=== PATIENT | female | born 1965 | race Caucasian/White ===

== ENCOUNTER 2020-09-21 14:36 | Inpatient (IN) | payer BC, SELFPAY ==
--- NOTE | ~2020-09-21 | XR_ITS ---
EXAMINATION: XR chest 1V portable EXAM DATE: 09/21/2020 15:14 INDICATION: Cough and shortness of breath. TECHNIQUE: Portable AP frontal chest x-ray was obtained. There is no prior study for comparison. FINDINGS: The lungs are clear. There are no pleural effusions. Cardiac silhouette is prominent but magnified on this AP technique. There is no pneumothorax suspected. The bones and soft tissues are unremarkable. IMPRESSION: No acute cardiopulmonary findings. Reviewed, dictated and finalized at location A. IN[facility] CUTTER
[2020-09-21 14:40] VITALS: BP 134/71; PULSE 90; RESP 20; TEMP 36.7; O2SAT 94
--- NOTE | 2020-09-21 15:00 | ECG_ITS ---
Measurements Intervals [place] Rate: 107 P: 52 IN: 129 QRS: 19 QRSD: 85 T: 42 QT: 354 QTc: 474 Interpretive Statements SINUS TACHYCARDIA POSSIBLE LEFT ATRIAL ENLARGEMENT LOW QRS VOLTAGE IN PRECORDIAL LEADS NONSPECIFIC ST & T-WAVE ABNORMALITY- DIFFUSE LEADS BASELINE ARTIFACT- I, III, AVL, V1 ABNORMAL ECG Electronically Signed On 09-21-2020 16:31:42 CUSTOMER ACCOUNT TECHNICIAN by Robert Alejo D.O.
--- NOTE | 2020-09-21 15:01 | ED.GENADULT ---
HPI - General Adult General Chief complaint: Shortness of Breath/Dyspnea Stated complaint: SOB Time Seen by Provider: 09/21/20 14:47 Source: patient History of Present Illness HPI narrative: Patient is a 55 y/o female complaining of severe SOB for 1 week. She states that she used her Neb without much relief. She has some cough. She denies. She states that she went to [facility] and her doctor wanted her admitted. However, there was no available bed at [facility]. She states that she has history of COPD and she still smokes. Related Data Home Medications Medication Instructions Recorded Confirmed albuterol sulfate 4 puff INHALATION Q4H 09/21/20 09/21/20 atorvastatin 80 mg PO DAILY 09/21/20 09/21/20 azithromycin 500 mg PO DAILY 09/21/20 09/21/20 clonazepam 0.5 mg PO HS 09/21/20 09/21/20 dapagliflozin [Farxiga] 5 mg PO DAILY 09/21/20 09/21/20 gabapentin 300 mg PO HS 09/21/20 09/21/20 insulin aspart U-100 [Novolog 10 unit SUBCUT TIDWM 09/21/20 09/21/20 U-100 Insulin aspart] irbesartan 150 mg PO DAILY 09/21/20 09/21/20 metoprolol tartrate 100 mg PO BID 09/21/20 09/21/20 trazodone 100 mg PO HS 09/21/20 09/21/20 Allergies Allergy/AdvReac Type Severity Reaction Status Date / Time Penicillins Allergy Severe Difficulty Verified 09/21/20 19:49 Breathing Review of Systems Constitutional: Constitutional: Denies chills, Denies fever(s), Denies headache(s) and Denies weakness Eyes: Eyes: Denies blurry vision ENT: Denies headache(s) and Denies neck pain Cardiovascular: Cardiovascular: Denies chest pain and Reports dyspnea Respiratory: Respiratory: Reports cough and Reports dyspnea Gastrointestinal: Gastrointestinal: Denies abdominal pain, Denies diarrhea, Denies nausea and Denies vomiting Genitourinary: Genitourinary: Denies hematuria and Denies dysuria Musculoskeletal: Musculoskeletal: Denies back pain and Denies neck pain Neurologic: Denies headache(s) and Denies weakness [facility] Past Medical History Medical History (Updated 09/22/20 @ 07:23 by Ilene Goff MD) Cerebrovascular accident Documented in her EMR however the patient denies history of such to this examiner. Chronic obstructive pulmonary disease Coronary artery disease Patient reports a history of MT and had a cardiac catheterization, without intervention. Gastroesophageal reflux disease Hypertension Tobacco abuse Type 2 diabetes mellitus Surgical History Surgical History (Updated 09/21/20 @ 23:20 by Sarah Hood PA-C) History of cardiac catheterization History of hysterectomy (~1996) Performed for reported pre cancerous changes. Family History Family History (Updated 09/21/20 @ 23:20 by Sarah Hood PA-C) Other Diabetes mellitus Hypertension Social History Social History (Updated 09/21/20 @ 23:21 by Sarah Hood PA-C) Social History: Surrogate decision maker: Ayesha Ramsey, daughter. Code status: Full code. Smoking packs per day: 1.5 Smoking cigarettes per day: 30.0 Years smoked: 15 Smoking pack-years: 22.50 Smoking status: Current every day smoker Tobacco type: cigarettes Alcohol intake: never Substance use: never Additional living arrangements comments: Lives in [place] with her family. 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 Gender identity (if verbalized by the patient): Female Spiritual care concerns: No Exam Const: General: no acute distress and well developed Orientation/consciousness: oriented to person, oriented to place, oriented to time and patient oriented x3 HENMT: Head: normocephalic Ears: external ears normal General nose exam: Normal external nose present Eyes: General: appearance normal, both eyes and all related structures Conjunctivae: conjunctivae normal Neck: Neck: normal visual inspection and full ROM Chest: Chest palpation & inspection: normal inspection of the chest and no tenderness Resp:
[2020-09-21 15:37] LABS: Basophils Percent Auto 0.2 % (0.2-1.2); Eosinophils Percent Auto 0.1 % (0-4.4); Hematocrit 49.2 % (37.0-47.0); Hemoglobin 16.4 g/dL (12.0-15.0); Immature Granulocyte Absolute 0.12 K/mm3 (0.00-0.031); Immature Granulocyte Percent A 0.7 % (0-0.5); Lymphocytes Absolute Auto 2.06 K/mm3 (0.9-3.2); Lymphocytes Percent Auto 11.9 % (18.3-44.2); Mean Corpuscular HGB Conc 33.3 g/dl (32-36); Mean Corpuscular Hemoglobin 27.3 pg (26-34); Mean Corpuscular Volume 81.9 fl (80-100); Mean Platelet Volume 10.4 fl (7.4-10.4); Monocytes Absolute Auto 0.3 K/mm3 (0.1-0.6); Monocytes Percent Auto 1.9 % (2.6-8.5); Neutrophils Absolute Auto 14.7 K/mm3 (1.3-6.7); Neutrophils Percent Auto 85.2 % (45.5-73.1); Platelet Count Result 280 k/mm3 (150-375); Red Blood Count 6.01 M/mm3 (4.2-5.4); Red Cell Distribution Width 12.8 % (11.5-14.5); White Blood Count 17.3 K/mm3 (4.5-10.0)
[2020-09-21 15:53] LABS: Alanine Aminotransferase 15 U/L (4-35); Albumin Level 3.8 g/dL (3.5-5.1); Alkaline Phosphatase 107 U/L (38-126); Anion Gap 7 mmol/L (8-16); Aspartate Amino Transferase 18 U/L (14-36); Bilirubin,Total 0.6 mg/dL (0.2-1.3); Blood Urea Nitrogen 18 mg/dL (7-17); Carbon Dioxide 28 mmol/L (22-30); Chloride 99 mmol/L (98-107); Estimated CRCL calculation 118 ml/min; Estimated Glomerular Filt Rate > 60; Glucose 404 mg/dL (65-105); Sodium 134 mmol/L (137-145)
[2020-09-21 16:04] LABS: NT Pro B Type Natriuretic Pept 191 PG/ML (5-100); Troponin I < 0.012 ng/mL (0.000-0.034)
[2020-09-21 16:42] VITALS: BP 138/92; PULSE 103; RESP 20; O2SAT 93
[2020-09-21] MEDS: INSULIN HUMAN REGULAR (*BKC) 100 UNITS/ML 10 UNITS SUB-Q (16:44)
[2020-09-21 17:31] VITALS: BP 167/101; PULSE 78; RESP 18; O2SAT 93
[2020-09-21 17:34] LABS: Alveolar/Arterial O2 Gradient 32.8 mmHg; Base Excess ABG 1.1 mEq/l (+/-2.0); Fractional Inspired Oxygen 21 %; HCO3 ABG 25.3 mEq/l (22.0-26.0); Oxygen Content ABG 21.7 %vol (16.0-22.0); Oxygen Saturation ABG 92.8 % (95.0-100.0); Oxyhemoglobin 90.8 % THb (90.0-100.0); PO2 ABG 63.1 mmHg (80.0-100.0); Site Drawn RIGHT BRACHIAL
[2020-09-21 17:35] LABS: Device ROOM AIR
[2020-09-21 17:59] LABS: Glucose Point of Care 486 (65-105)
[2020-09-21 19:36] VITALS: BP 159/95; PULSE 98; RESP 22; TEMP 36.5; O2SAT 96; BMI 32.6
[2020-09-21 19:37] VITALS: BMI 32.2
--- NOTE | 2020-09-21 19:40 | ADMGEN ---
This patient, Kimber Sauceda, was admitted to [facility] Surg Room 319-01. Patient/family oriented to hospital policies and general routines including ID bracelet, bed and alarms, visiting hours, pain management, procedures, bathroom and other care routines, personal items, smoking policy, room service/diet, and visiting hours. Information on how to activate the Rapid Response Team has been discussed. Patient/Family are encouraged to report perceived risks to care and to ask questions if they do not understand what they are told or what they should do.
[2020-09-21 20:46] LABS: Troponin I < 0.012 ng/mL (0.000-0.034)
--- NOTE | 2020-09-21 21:30 | PM.IMHP ---
H&P: HPI History of Present Illness Date/Time: 09/21/20 21:30 Chief complaint: Shortness of breath. Narrative: Kimber Sauceda is a 55-year-old female smoker with COPD, type 2 diabetes mellitus, and hypertension who presented to the emergency department earlier this afternoon via EMS from home with complaints of shortness of breath. She has not been feeling well for over a week's time with cough and shortness of breath and in fact was seen in the emergency department at [facility] last Monday where she was diagnosed with pneumonia. She was given prescriptions for a Z-Jacoby, prednisone taper, and a rescue inhaler and it sounds as though she was seen again on without improvement. At that time she was prescribed a nebulizer which she has been using q.4 hours with lesser and lesser benefit. She has completed the Z-Jacoby and remains on the prednisone taper but is not feeling much better and in fact she has not smoked in several days. Continued symptoms include a subjective fever, cough which is loose but nonproductive, wheezing, thoracic pain which she attributes to coughing fits, and decreased appetite and oral intake. It sounds as though she has had a couple of episodes of post-tussive emesis as well. She has not had a documented fever, denies recent travel, and reportedly tested negative last week for COVID-19 at an outside facility. No anosmia or dysgeusia. She has not had pleuritic pain, palpitations, orthopnea, PND, or lower extremity edema. Of note the patient's nurse was told by the patient's daughter that she had been having periods of confusion over the weekend, for instance speaking or seeing her parents. Apparently she has been having instances of incontinence while in bed as well. I did bring these concerns up with the patient, however she denies these allegations. Review of Systems Review of Systems: Narrative: Twelve systems were reviewed with pertinent positives and negatives as per HPI. she denies recent travel. No diarrhea. No dysuria. She has perhaps mild headache at times but nothing significant. No dizziness, vertigo, auditory visual changes, focal weakness, or paresthesias. She denies confusion to me. Except as documented, all other systems were reviewed and are negative. [facility] Past Medical History Medical History (Updated 09/21/20 @ 23:20 by Sarah Hood PA-C) Cerebrovascular accident Documented in her EMR however the patient denies history of such to this examiner. Chronic obstructive pulmonary disease Coronary artery disease Patient reports a history of IN and had a cardiac catheterization, without intervention. Gastroesophageal reflux disease Hypertension Tobacco abuse Type 2 diabetes mellitus Surgical History Surgical History (Updated 09/21/20 @ 23:20 by Sarah Hood PA-C) History of cardiac catheterization History of hysterectomy (~1996) Performed for reported pre cancerous changes. Family History Family History (Updated 09/21/20 @ 23:20 by Sarah Hood PA-C) Other Diabetes mellitus Hypertension Social History Social History (Updated 09/21/20 @ 23:21 by Sarah Hood PA-C) Social History: Surrogate decision maker: Ayesha Ramsey, daughter. Code status: Full code. Smoking packs per day: 1.5 Smoking cigarettes per day: 30.0 Years smoked: 15 Smoking pack-years: 22.50 Smoking status: Current every day smoker Tobacco type: cigarettes Alcohol intake: never Substance use: never Additional living arrangements comments: Lives in [place] with her family. 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 Gender identity (if verbalized by the patient): Female Spiritual care concerns: No Meds Home Medications and Allergies Home Medications Medication Instructions Recorded Confirmed Type albuterol sulfate 4 puff INHALATION Q4H 09/21/20 09/21/20 History atorvastatin 80 mg
[2020-09-21 23:00] VITALS: PULSE 75; RESP 16; O2SAT 92
[2020-09-21] MEDS: SODIUM CHLORIDE 0.9% IV 1,000 ML 100 ML IV CONT (23:52)
[2020-09-21 23:53] LABS: Troponin I < 0.012 ng/mL (0.000-0.034)
[2020-09-21] MEDS: clonazePAM (*CRX) 0.5 MG TABLET PO (23:53)
[2020-09-21] MEDS: guaiFENesin 12 HR 600 MG TABCR 1200 MG PO (23:53)
[2020-09-21 23:54] VITALS: PULSE 76
[2020-09-21] MEDS: METOPROLOL TARTRATE 50 MG TAB 100 MG PO (23:54)
[2020-09-21] MEDS: traZODone HCL 50 MG TABLET 100 MG PO (23:54)
[2020-09-21] MEDS: GABAPENTIN 300 MG CAPSULE PO (23:55)
[2020-09-22] VITALS (10 sets, daily range): BP systolic 130–165; BP diastolic 61–91; PULSE 66–86; RESP 16–20; TEMP 36.3–36.8; O2SAT 92–96; BMI 32.2
[2020-09-22] MEDS: INSULIN ASPART (*BKC) 100 UNITS/ML 11 UNITS SUB-Q (01:40)
[2020-09-22] MEDS: ALBUTEROL SULFATE (*SP) AEROSOL 1 PUFF 2 PUFF INHALATION ×3 (02:43→21:09)
[2020-09-22 05:24] LABS: Glucose Point of Care 351 (65-105)
[2020-09-22 05:24] LABS: Glucose Point of Care 403 (65-105)
[2020-09-22 06:21] LABS: Basophils Percent Auto 0.2 % (0.2-1.2); Hematocrit 46.1 % (37.0-47.0); Hemoglobin 15.4 g/dL (12.0-15.0); Immature Granulocyte Absolute 0.21 K/mm3 (0.00-0.031); Immature Granulocyte Percent A 1.2 % (0-0.5); Lymphocytes Absolute Auto 2.81 K/mm3 (0.9-3.2); Lymphocytes Percent Auto 15.6 % (18.3-44.2); Mean Corpuscular HGB Conc 33.4 g/dl (32-36); Mean Corpuscular Hemoglobin 26.6 pg (26-34); Mean Corpuscular Volume 79.5 fl (80-100); Mean Platelet Volume 10.6 fl (7.4-10.4); Monocytes Absolute Auto 0.8 K/mm3 (0.1-0.6); Monocytes Percent Auto 4.3 % (2.6-8.5); Neutrophils Absolute Auto 14.2 K/mm3 (1.3-6.7); Neutrophils Percent Auto 78.7 % (45.5-73.1); Platelet Count Result 300 k/mm3 (150-375); Red Cell Distribution Width 12.5 % (11.5-14.5)
[2020-09-22 06:30] LABS: Anion Gap 6 mmol/L (8-16); Blood Urea Nitrogen 20 mg/dL (7-17); Calcium 8.7 mg/dL (8.4-10.2); Carbon Dioxide 29 mmol/L (22-30); Chloride 101 mmol/L (98-107); Estimated CRCL calculation 141 ml/min; Estimated Glomerular Filt Rate > 60; Glucose 251 mg/dL (65-105); Potassium 3.9 mmol/L (3.4-5.0); Sodium 136 mmol/L (137-145)
[2020-09-22 07:24] LABS: Hemoglobin A1C 10.8 % (<5.7)
[2020-09-22] MEDS: predniSONE 20 MG TABLET 40 MG PO (08:19)
[2020-09-22] MEDS: guaiFENesin 12 HR 600 MG TABCR 1200 MG PO ×2 (08:19→21:28)
[2020-09-22] MEDS: ATORVASTATIN 40 MG TABLET 80 MG PO (08:20)
[2020-09-22] MEDS: METOPROLOL TARTRATE 50 MG TAB 100 MG PO ×2 (08:20→21:28)
[2020-09-22] MEDS: ENOXAPARIN 40 MG/0.4 ML SYRINGE SUB-Q (08:20)
[2020-09-22] MEDS: IRBESARTAN 150 MG TABLET PO (08:20)
[2020-09-22] MEDS: INSULIN ASPART (*BKC) 100 UNITS/ML SUB-Q ×3 (08:25→17:11)
[2020-09-22] MEDS: INSULIN ASPART (*BKC) 100 UNITS/ML 10 UNITS SUB-Q ×3 (08:25→17:10)
[2020-09-22 13:20] LABS: Glucose Point of Care 226 (65-105)
[2020-09-22 13:20] LABS: Glucose Point of Care 234 (65-105)
--- NOTE | 2020-09-22 13:47 | PM.IMPN ---
Progress Note: A&P Assessment and Plan (1) COPD exacerbation: Code(s): J44.1 - Chronic obstructive pulmonary disease with (acute) exacerbation Status: Acute Assessment and Plan: COPD exacerbation inhaled steroid and schedule albuterol MDI as q.4 hours. Start IV levaquin. Pt has PCN allergy. Pt has been swabbed for COVID awaiting results (2) Tobacco abuse: Code(s): Z72.0 - Tobacco use Status: Acute Assessment and Plan: Pt smokes 1 pack a day , last cigarette one week. Pt will need Nicotine patch (3) Type 2 diabetes mellitus: Code(s): E11.9 - Type 2 diabetes mellitus without complications Status: Inactive Assessment and Plan: Watch sugars, running slightly high, pt is started on steroids, HBaic is 10 (4) Hypertension: Code(s): I10 - Essential (primary) hypertension Status: Chronic Assessment and Plan: On medicatiion, watch BPs (5) Leukocytosis: Code(s): D72.829 - Elevated white blood cell count, unspecified Status: Acute Assessment [place]: [place] [id number] Subjective Date/time seen: 09/22/20 13:47 Interval history: Kimber Sauceda is a 55-year-old female smoker with COPD, type 2 diabetes mellitus, and hypertension who presented to the emergency department earlier this afternoon via EMS from home with complaints of shortness of breath. She has not been feeling well for over a week's time with cough and shortness of breath and in fact was seen in the emergency department at [facility] last Monday where she was diagnosed with pneumonia. Pt got worse, more coughing, low grade fevers. Pts pcp told her to go to [place] ER. Pt feels unwell with cough and SOB. [place] [id number]. Review of Systems Review of Systems: All systems reviewed & are unremarkable except as noted in HPI and below Exam Narrative: Exam Narrative: General: Pt looks ill, wet cough Cardiovascular: Regular rate and rhythm with S1-S2. Gastrointestinal: Abdomen is soft, nontender, and nondistended with positive bowel sounds. Skin: Warm and dry. No rash or lesions on limited exam. Extremities: No cyanosis, clubbing, or edema. Neurological: No gross focal deficits to casual conversation. Psychiatric: Appropriate mood. Objective Data Vital Signs Vital Signs: Vital Signs - 24 hr 11/16/20 14:40 09/21/20 16:42 09/21/20 17:31 Temperature 36.7 C Pulse Rate 90 103 H 78 Respiratory Rate 20 20 18 Blood Pressure 134/71 138/92 H 167/101 H Pulse Oximetry 94 93 93 09/21/20 19:36 09/21/20 23:54 09/22/20 02:48 Temperature 36.5 C Pulse Rate 98 76 73 Respiratory Rate 22 H Blood Pressure 159/95 H Pulse Oximetry 96 93 09/22/20 04:00 09/22/20 08:00 09/22/20 08:20 Temperature 36.4 C L 36.7 C Pulse Rate 66 70 68 Respiratory Rate 20 16 Blood Pressure 151/79 H 151/78 H Pulse Oximetry 93 96 09/22/20 10:15 09/22/20 12:00 Temperature 36.8 C Pulse Rate 81 Respiratory Rate 20 Blood Pressure 146/81 H Pulse Oximetry 92 94 Intake/Output Intake/Output: Intake & Output 09/19/20 09/20/20 09/21/20 09/22/20 23:59 23:59 23:59 23:59 Intake Total 1939 Balance 1939 Meds/Results Medications: Active Medications Generic Name Dose Route Start Last Admin Trade Name Freq PRN Reason Stop Dose Admin Albuterol 2 puff 09/22/20 02:00 09/22/20 10:15 Albuterol Sulfate (*Sp) Aerosol 1 Puff INHALATION 2 puff Q6HRT ISH Administration Atorvastatin Calcium 80 mg 09/22/20 09:00 09/22/20 08:20 Atorvastatin 40 Mg Tablet PO 80 mg DAILY ISH Administration Budesonide/Formoterol Fumarate 2 puff 09/22/20 08:00 09/22/20 10:15 Budesonide/Form 160-4.5 Mcg (*Sp) INHALATION 2 puff Q12HRT ISH Administration Clonazepam 0.5 mg 09/21/20 23:35 09/21/20 23:53 Clonazepam (*Crx) 0.5 Mg Tablet PO 0.5 mg HS ISH Administration Dextrose 12.5 gm 09/22/20 00:51 Dextros
[2020-09-22] MEDS: BENZONATATE 100 MG CAPSULE PO (15:01)
[2020-09-22] MEDS: levoFLOXacin 500 MG/D5W 100 ML 500 MG/100 ML BAG 100 MG IVPB (17:56)
[2020-09-22 18:30] LABS: Glucose Point of Care 243 (65-105)
[2020-09-22] MEDS: ACETAMINOPHEN 325 MG TABLET 650 MG PO (18:45)
[2020-09-22 19:47] LABS: SARS-CoV-2 RNA PCR Negative
[2020-09-22] MEDS: GABAPENTIN 300 MG CAPSULE PO (21:28)
[2020-09-22] MEDS: traZODone HCL 50 MG TABLET 100 MG PO (21:41)
[2020-09-22] MEDS: clonazePAM (*CRX) 0.5 MG TABLET PO (21:41)
[2020-09-22 22:44] LABS: Glucose Point of Care 300 (65-105)
--- NOTE | 2020-09-22 23:23 | PC.NURSE ---
09/22/20 at 2235-- patient moved to room 301 from room 319, covid results negative. TDialRN
[2020-09-23] VITALS (9 sets, daily range): BP systolic 149–156; BP diastolic 73–95; PULSE 68–88; RESP 16–20; TEMP 36.1–36.7; O2SAT 94–98
[2020-09-23 08:38] LABS: Glucose Point of Care 268 (65-105)
[2020-09-23] MEDS: INSULIN ASPART (*BKC) 100 UNITS/ML 10 UNITS SUB-Q ×3 (08:50→17:10)
[2020-09-23] MEDS: INSULIN ASPART (*BKC) 100 UNITS/ML SUB-Q ×3 (08:51→17:10)
[2020-09-23] MEDS: ATORVASTATIN 40 MG TABLET 80 MG PO (08:53)
[2020-09-23] MEDS: predniSONE 20 MG TABLET 40 MG PO (08:53)
[2020-09-23] MEDS: IRBESARTAN 150 MG TABLET PO (08:54)
[2020-09-23] MEDS: ENOXAPARIN 40 MG/0.4 ML SYRINGE SUB-Q (08:54)
[2020-09-23] MEDS: METOPROLOL TARTRATE 50 MG TAB 100 MG PO ×2 (08:54→20:39)
[2020-09-23] MEDS: guaiFENesin 12 HR 600 MG TABCR 1200 MG PO ×2 (08:54→20:40)
[2020-09-23] MEDS: ALBUTEROL SULFATE (*SP) AEROSOL 1 PUFF 2 PUFF INHALATION (09:21)
[2020-09-23 12:17] LABS: Glucose Point of Care 220 (65-105)
--- NOTE | 2020-09-23 12:47 | PM.IMPN ---
Progress Note: A&P Assessment and Plan (1) COPD exacerbation: Code(s): J44.1 - Chronic obstructive pulmonary disease with (acute) exacerbation Status: Acute Assessment and Plan: COPD exacerbation, oral steroids i will change to iv, Breathing treatments. Start IV levaquin. Pt has PCN allergy. COVID IS negative (2) Tobacco abuse: Code(s): Z72.0 - Tobacco use Status: Acute Assessment and Plan: Pt smokes 1 pack a day , last cigarette one week. Pt will need Nicotine patch (3) Type 2 diabetes mellitus: Code(s): E11.9 - Type 2 diabetes mellitus without complications Status: Inactive Assessment and Plan: Sugars still, running slightly high, pt is started on steroids, HBaic is 10 (4) Hypertension: Code(s): I10 - Essential (primary) hypertension Status: Chronic Assessment and Plan: On medication, watch BPs (5) Leukocytosis: Code(s): D72.829 - Elevated white blood cell count, unspecified Status: Acute Assessment [place]: [place] [id number] Subjective Date/time seen: 09/23/20 12:47 Interval history: Kimber Sauceda is a 55-year-old female smoker with COPD, type 2 diabetes mellitus, and hypertension who presented to the emergency department earlier this afternoon via EMS from home with complaints of shortness of breath. She has not been feeling well for over a week's time with cough and shortness of breath and in fact was seen in the emergency department at [facility] last Monday where she was diagnosed with pneumonia. Pt got worse, more coughing, low grade fevers. Pts pcp told her to go to [place] ER. Pt feels unwell with cough and SOB. [place] [id number]. Pt still has wet cough. Pt is a smoker one pack a day, Daughter wants her to see Pulmology. Review of Systems Review of Systems: All systems reviewed & are unremarkable except as noted in HPI and below Exam Narrative: Exam Narrative: General: Pt looks ill, wet cough Cardiovascular: Regular rate and rhythm with S1-S2. Lungs: BL wheezes expiratory wheezes diffuse Gastrointestinal: Abdomen is soft, nontender, and nondistended with positive bowel sounds. Skin: Warm and dry. No rash or lesions on limited exam. Extremities: No cyanosis, clubbing, or edema. Neurological: No gross focal deficits to casual conversation. Psychiatric: Appropriate mood. Objective Data Vital Signs Vital Signs: Vital Signs - 24 hr 09/22/20 16:00 09/22/20 20:00 09/22/20 21:09 Temperature 36.8 C 36.3 C L Pulse Rate 86 75 Respiratory Rate 20 16 Blood Pressure 165/91 H 130/61 Pulse Oximetry 96 94 92 09/22/20 21:28 09/23/20 07:48 09/23/20 08:54 Temperature 36.7 C Pulse Rate 75 73 68 Respiratory Rate 16 Blood Pressure 156/95 H Pulse Oximetry 92 97 09/23/20 09:21 Temperature Pulse Rate 77 Respiratory Rate 16 Blood Pressure Pulse Oximetry 94 Intake/Output Intake/Output: Intake & Output 09/20/20 09/21/20 09/22/20 09/23/20 23:59 23:59 23:59 23:59 Intake Total 3180 560 Output Total 250 Balance 2930 560 Meds/Results Medications: Active Medications Generic Name Dose Route Start Last Admin Trade Name Freq PRN Reason Stop Dose Admin Acetaminophen 650 mg 09/22/20 18:21 09/22/20 18:45 Acetaminophen 325 Mg Tablet PO 650 mg Q6H PRN Administration Mild Pain (1-3) or Fever Albuterol 2.5 mg 09/23/20 14:00 Albuterol Sulfate Neb 2.5 Mg/0.5 Ml Inh INHALATION Q6HRT ISH Atorvastatin Calcium 80 mg 09/22/20 09:00 09/23/20 08:53 Atorvastatin 40 Mg Tablet PO 80 mg DAILY ISH Administration Benzonatate 100 mg 09/22/20 14:05 09/22/20 15:01 Benzonatate 100 Mg Capsule PO 100 mg TID PRN Administration Cough Budesonide/Formoterol Fumarate 2 puff 09/22/20 08:00 09/23/20 09:21 Budesonide/Form 160-4.5 Mcg (*Sp) INHALATION 2 puff Q12HRT ISH Administration Clonazepam
[2020-09-23] MEDS: ALBUTEROL SULFATE NEB 2.5 MG/0.5 ML INH INHALATION ×2 (15:13→20:29)
[2020-09-23] MEDS: IPRATROPIUM BR 0.02% INH SOLN 0.5 MG/2.5 ML VIAL INHALATION ×2 (15:13→20:29)
[2020-09-23] MEDS: methylPREDNISolone SOD SUCC 40 MG VIAL IV PUSH (17:13)
[2020-09-23 17:22] LABS: Glucose Point of Care 297 (65-105)
[2020-09-23] MEDS: FAMOTIDINE 20 MG TABLET PO (17:32)
[2020-09-23] MEDS: GABAPENTIN 300 MG CAPSULE PO (20:39)
[2020-09-23] MEDS: traZODone HCL 50 MG TABLET 100 MG PO (20:40)
[2020-09-23] MEDS: clonazePAM (*CRX) 0.5 MG TABLET PO (20:47)
[2020-09-24] VITALS (15 sets, daily range): BP systolic 151–173; BP diastolic 81–90; PULSE 73–92; RESP 16–20; TEMP 35.9–36.7; O2SAT 94–98
[2020-09-24] MEDS: methylPREDNISolone SOD SUCC 40 MG VIAL IV PUSH ×2 (00:13→06:34)
[2020-09-24] MEDS: IPRATROPIUM BR 0.02% INH SOLN 0.5 MG/2.5 ML VIAL INHALATION ×4 (02:49→19:45)
[2020-09-24] MEDS: ALBUTEROL SULFATE NEB 2.5 MG/0.5 ML INH INHALATION ×4 (02:49→19:45)
[2020-09-24 08:07] LABS: Glucose Point of Care 394 (65-105)
[2020-09-24 08:31] LABS: Glucose Point of Care 429 (65-105)
[2020-09-24] MEDS: INSULIN ASPART (*BKC) 100 UNITS/ML 10 UNITS SUB-Q ×3 (08:49→17:26)
[2020-09-24] MEDS: INSULIN ASPART (*BKC) 100 UNITS/ML SUB-Q ×3 (08:50→17:27)
[2020-09-24] MEDS: ENOXAPARIN 40 MG/0.4 ML SYRINGE SUB-Q (08:56)
[2020-09-24] MEDS: ATORVASTATIN 40 MG TABLET 80 MG PO (08:56)
[2020-09-24] MEDS: guaiFENesin 12 HR 600 MG TABCR 1200 MG PO ×2 (08:57→21:21)
[2020-09-24] MEDS: METOPROLOL TARTRATE 50 MG TAB 100 MG PO ×2 (08:57→21:22)
[2020-09-24] MEDS: FAMOTIDINE 20 MG TABLET PO ×2 (08:57→17:29)
[2020-09-24] MEDS: IRBESARTAN 150 MG TABLET PO (08:57)
[2020-09-24 11:55] LABS: Hematocrit 47.3 % (37.0-47.0); Hemoglobin 15.9 g/dL (12.0-15.0); Mean Corpuscular HGB Conc 33.6 g/dl (32-36); Mean Corpuscular Hemoglobin 26.9 pg (26-34); Mean Corpuscular Volume 79.9 fl (80-100); Mean Platelet Volume 10.6 fl (7.4-10.4); Platelet Count Result 298 k/mm3 (150-375); Red Blood Count 5.92 M/mm3 (4.2-5.4); Red Cell Distribution Width 12.6 % (11.5-14.5); White Blood Count 19.7 K/mm3 (4.5-10.0)
[2020-09-24 12:08] LABS: Glucose Point of Care 363 (65-105)
[2020-09-24] MEDS: methylPREDNISolone SOD SUCC 40 MG VIAL 20 MG IV PUSH ×2 (12:13→17:29)
--- NOTE | 2020-09-24 14:22 | PM.IMPN ---
Progress Note: A&P Assessment and Plan (1) COPD exacerbation: Code(s): J44.1 - Chronic obstructive pulmonary disease with (acute) exacerbation Status: Acute Assessment and Plan: COPD exacerbation, oral steroids i will change to iv, Breathing treatments. Start IV levaquin. Pt has PCN allergy. COVID IS negative (2) Tobacco abuse: Code(s): Z72.0 - Tobacco use Status: Acute Assessment and Plan: Pt smokes 1 pack a day , last cigarette one week. Pt will need Nicotine patch (3) Type 2 diabetes mellitus: Code(s): E11.9 - Type 2 diabetes mellitus without complications Status: Inactive Assessment and Plan: Dm type 2 uncontrolled, sugars running slightly high, pt is started on steroids, HBaic is 10 (4) Hypertension: Code(s): I10 - Essential (primary) hypertension Status: Chronic Assessment and Plan: On medication, watch BPs (5) Leukocytosis: Code(s): D72.829 - Elevated white blood cell count, unspecified Status: Acute Assessment [place]: [place] [id number] Subjective Date/time seen: 09/24/20 14:22 Interval history: Kimber Sauceda is a 55-year-old female smoker with COPD, type 2 diabetes mellitus, and hypertension who presented to the emergency department earlier this afternoon via EMS from home with complaints of shortness of breath. She has not been feeling well for over a week's time with cough and shortness of breath and in fact was seen in the emergency department at [facility] last Monday where she was diagnosed with pneumonia. Pt got worse, more coughing, low grade fevers. Pts pcp told her to go to [place] ER. Pt feels unwell with cough and SOB. [place] [id number] Pt cough is better. Pt is a smoker one pack a day, Daughter wants her to see Pulmonology. Pt is being treated for COPD exacerbation. Review of Systems Review of Systems: All systems reviewed & are unremarkable except as noted in HPI and below Exam Narrative: Exam Narrative: General: Pt mild cough Cardiovascular: Regular rate and rhythm with S1-S2. Lungs: Few scattered wheezes Gastrointestinal: Abdomen is soft, nontender, and nondistended with positive bowel sounds. Skin: Warm and dry. No rash or lesions on limited exam. Extremities: No cyanosis, clubbing, or edema. Neurological: No gross focal deficits to casual conversation. Psychiatric: Appropriate mood. Objective Data Vital Signs Vital Signs: Vital Signs - 24 hr 09/23/20 15:13 09/23/20 15:23 09/23/20 20:30 Temperature Pulse Rate 78 80 83 Respiratory Rate 16 16 18 Blood Pressure Pulse Oximetry 98 09/23/20 20:39 09/23/20 22:42 09/24/20 02:54 Temperature 36.6 C Pulse Rate 88 87 82 Respiratory Rate 16 18 Blood Pressure 154/92 H Pulse Oximetry 95 09/24/20 06:45 09/24/20 08:57 09/24/20 09:45 Temperature 36.7 C Pulse Rate 73 88 82 Respiratory Rate 16 18 Blood Pressure 162/90 H Pulse Oximetry 94 09/24/20 09:55 09/24/20 10:31 09/24/20 13:30 Temperature Pulse Rate 85 84 Respiratory Rate 18 18 Blood Pressure Pulse Oximetry 98 09/24/20 13:38 Temperature Pulse Rate 82 Respiratory Rate 18 Blood Pressure Pulse Oximetry Intake/Output Intake/Output: Intake & Output 09/21/20 09/22/20 09/23/20 09/24/20 23:59 23:59 23:59 23:59 Intake Total 3180 920 840 Output Total 250 500 Balance 2930 920 340 Meds/Results Medications: Active Medications Generic Name Dose Route Start Last Admin Trade Name Freq PRN Reason Stop Dose Admin Acetaminophen 650 mg 09/22/20 18:21 09/22/20 18:45 Acetaminophen 325 Mg Tablet PO 650 mg Q6H PRN Administration Mild Pain (1-3) or Fever Albuterol 2.5 mg 09/23/20 14:00 09/24/20 13:25 Albuterol Sulfate Neb 2.5 Mg/0.5 Ml Inh INHALATION 2.5 mg Q6HRT ISH Administration Atorvastatin Calcium 80 mg 09/22/20 09:00 09/24/20 08:56 Atorvast
[2020-09-24 18:09] LABS: Glucose Point of Care 396 (65-105)
--- NOTE | 2020-09-24 20:04 | PM.CNPUL ---
Assessment and Plan Assessment and plan (1) COPD exacerbation: Code(s): J44.1 - Chronic obstructive pulmonary disease with (acute) exacerbation Status: Acute Assessment and Plan: She has been smoking x 22+ years, slowed before coming in, none for the last 3 days.She is not committed to quitting, not convinced this is necessary. She has COPd symptoms at baseline, smoker's cough, shortness of breath with daily activities, no regular sputum production and wheezes only when sick. Mei now has erythrocytosis, and this may reflect low O2 levels at night. She will need more follow up for possible sleep disordered breathing. PLAN: COPD controller therapy ; now on Symbicort which should be used with a spacer. Continue albuterol p.r.n. She can take the [place]et valve home nad use t oassist wit hsecretions clearance. She says that it helps to loosen secretions. PFTs in 6 - 8 weeks; may be candidate for cardiopulmonary rehab Follow up in the office in 1-2 months Tobacco cessation; personal cessation and avoiding second hand smoke from Alpha-1 antitrypsin level in am with COPD. She is on room air and should be stable for d/c tomorrow. Sleep follow up out-patient; at minimum HST. home sleep test. (2) Tobacco abuse: Code(s): Z72.0 - Tobacco use Status: Acute Assessment and Plan: Smoked up until a few days before admission. She is not totally committed to smoking cessation. She really needs to make this a priority. She has been off tobacco for 3 days, and was decreasing the amount before coming in; this is the best time to stop. (3) Erythrocytosis: Code(s): D75.1 - Secondary polycythemia Status: Acute Assessment and Plan: Today 15.9/47.3%; Elevated H/H through this admission; needs to have sleep evaluation after she is back at baseline as far as breathing. This is likely due to COPD, nocturnal hypoxemia, tobacco use. History of Present Illness History of Present Illness Consult date: 09/24/20 Requesting physician: Rohini Sullivan MD Reason for consult: COPD Chief complaint: Shortness of breath. Narrative: NEW: Kimber Sauceda is a 55 yo female admitted Sep 21 with increased shortness of breath, failed outpatient treatment from ER AT [facility]. She is a smoker, 1 ppd starting at age 30. She has been more short of breath for 2 weeks, she was treated at [facility] on MondaySep 14 with a Z-pack, prednisone and albuterol inhaler and was seen at [facility] again Sep 17, treated and released. She presented to [place] Sep 21, was admitted and now 3 days later feels better. She has not smoked since admission; she reports that she had pneumonia and COVID at [facility]. When she presented here Sep 21, she complained of wheezing, feeling feverish, nonproductive cough, and chest pain from excessive coughing. The patient's daughter told the RN that the patient was confused over the weekend prior to admission, but the patient did not agree with this. I think that the patient may have some confusion as she told me that she did have COVID and pneumonia per [facility], and the records here do not support that she had COVID. Some of her comments do not make sense in the context of her education as a [employer], such as saying that she thought COPD was a diagnosis that would not get worse, and she was surprised when her mother from it. She says that she thinks it is not fair that her smokes and is healthy as a horse, and she has COPD from smoking. We talked about all people having different genes, and that with her family history of COPD, she is more likely to have the genetic predisposition, and that smoking makes COPD worse. Her WBC has increased now 19.7, she has erythrocytosis, may have nocturnal hypoxemia. she has DM type II and her
[2020-09-24] MEDS: GABAPENTIN 300 MG CAPSULE PO (21:21)
[2020-09-24] MEDS: clonazePAM (*CRX) 0.5 MG TABLET PO (21:22)
[2020-09-24] MEDS: traZODone HCL 50 MG TABLET 100 MG PO (21:26)
[2020-09-24 22:00] LABS: Glucose Point of Care 396 (65-105)
[2020-09-25] VITALS (7 sets, daily range): BP systolic 166–169; BP diastolic 86–87; PULSE 75–86; RESP 18–21; TEMP 36.1–36.6; O2SAT 96–100
[2020-09-25] MEDS: methylPREDNISolone SOD SUCC 40 MG VIAL 20 MG IV PUSH ×2 (00:43→06:03)
[2020-09-25] MEDS: IPRATROPIUM BR 0.02% INH SOLN 0.5 MG/2.5 ML VIAL INHALATION ×2 (02:00→08:59)
[2020-09-25] MEDS: ALBUTEROL SULFATE NEB 2.5 MG/0.5 ML INH INHALATION ×2 (02:00→08:59)
[2020-09-25 06:33] LABS: Hematocrit 44.5 % (37.0-47.0); Hemoglobin 15.1 g/dL (12.0-15.0); Mean Corpuscular HGB Conc 33.9 g/dl (32-36); Mean Corpuscular Volume 79.5 fl (80-100); Mean Platelet Volume 10.8 fl (7.4-10.4); Platelet Count Result 259 k/mm3 (150-375); Red Cell Distribution Width 12.8 % (11.5-14.5); White Blood Count 16.8 K/mm3 (4.5-10.0)
[2020-09-25 06:59] LABS: Anion Gap 7 mmol/L (8-16); Blood Urea Nitrogen 16 mg/dL (7-17); Calcium 8.7 mg/dL (8.4-10.2); Carbon Dioxide 28 mmol/L (22-30); Chloride 97 mmol/L (98-107); Estimated CRCL calculation 141 ml/min; Estimated Glomerular Filt Rate > 60; Glucose 366 mg/dL (65-105); Sodium 132 mmol/L (137-145)
[2020-09-25] MEDS: ENOXAPARIN 40 MG/0.4 ML SYRINGE SUB-Q (07:51)
[2020-09-25] MEDS: FAMOTIDINE 20 MG TABLET PO (07:51)
[2020-09-25] MEDS: ATORVASTATIN 40 MG TABLET 80 MG PO (07:51)
[2020-09-25] MEDS: IRBESARTAN 150 MG TABLET PO (07:52)
[2020-09-25] MEDS: METOPROLOL TARTRATE 50 MG TAB 100 MG PO (07:52)
[2020-09-25] MEDS: guaiFENesin 12 HR 600 MG TABCR 1200 MG PO (07:52)
--- NOTE | 2020-09-25 08:45 | PC.NURSE ---
Accucheck of 436 reprted to MD orders rec'd to administer 10units novolog in addition to 10units routine
[2020-09-25 08:46] LABS: Glucose Point of Care 436 (65-105)
[2020-09-25] MEDS: INSULIN ASPART (*BKC) 100 UNITS/ML 10 UNITS SUB-Q ×4 (09:17→12:10)
--- NOTE | 2020-09-25 10:52 | PCNFU ---
Nutrition Follow-Up Complete: Inadequate oral intake related to reduced appetite as evidence by wt loss of 20lbs in two weeks adn 91% of UBW Goal: PO intake of meals and supplements at 75% or greater to maintain weight Nutrition goal has been met.No new goal. Pt current nutrition is DBCC. Last recorded weight is 87.9 kg, no new weight to report. Bowel Motility:+BM reported 09/24 Labs Reviewed:Na 132,Glu 366 Meds Noted:Solu-Medrol,Lopressor,Mucinex,Lipitor,Atrovent,Novolog,Lovenox. Additional Notes: Nutrition follow up today. Patient states to no diet concerns. Eating 100% of a Diabetic diet. Diet supplements ordered for [employer] BID providing an additional 220 kcals and 10 gms protein. Monitoring: PO intake, wt every 7 days
[2020-09-25 11:17] LABS: Glucose Point of Care 500 (65-105)
--- NOTE | 2020-09-25 11:54 | PC.NURSE ---
accucheck at 1130 is 500, made aware and ordered additional 10units novolog along with 10units routinely ordered
--- NOTE | 2020-09-25 13:08 | PM.DS ---
DS: Admitting Diagnosis Admitting Diagnosis Admitting Diagnosis: Shortness of breath. Kimber Sauceda is a 55-year-old female smoker with COPD, type 2 diabetes mellitus, and hypertension who presented to the emergency department earlier this afternoon via EMS from home with complaints of shortness of breath. She has not been feeling well for over a week's time with cough and shortness of breath and in fact was seen in the emergency department at [facility] last Monday where she was diagnosed with pneumonia. Here Cxr is negative for pneumonia, COVID screen is negative. Pt has been treated for COPD excerbation and is now doing well, apart from high sugars probably due to IV steroids. DS: Discharge Diagnosis Discharge Diagnosis (1) COPD exacerbation: Code(s): J44.1 - Chronic obstructive pulmonary disease with (acute) exacerbation Status: Acute Assessment and Plan: COPD exacerbation, discharge on oral prednisone and inhalers. Pt has PCN allergy. COVID IS negative, Cxr negative, covid negative. Pts cough is gone so she is not discharged on any further ABX. (2) Tobacco abuse: Code(s): Z72.0 - Tobacco use Status: Acute Assessment and Plan: Pt smokes 1 pack a day , last cigarette one week. long discussion on smoking cessation, pt wants to try vapor cigarettes. (3) Type 2 diabetes mellitus: Code(s): E11.9 - Type 2 diabetes mellitus without complications Status: Inactive Assessment and Plan: Dm type 2 uncontrolled, sugars running slightly high, pt is started on iv steroids in the hospital, HBaic is 10. Pt adviced to do better with her DM. (4) Hypertension: Code(s): I10 - Essential (primary) hypertension Status: Chronic Assessment and Plan: Bp is 169/87 (5) Leukocytosis: Code(s): D72.829 - Elevated white blood cell count, unspecified Status: Acute [place] [id number] likely secondary to IV steroids DS: Summary Time Spent with Patient Time attestation: Total time spent providing and/or coordinating discharge services:40 minutes on day of dischrage Exam Narrative: Exam Narrative: General: No cough comfortable Cardiovascular: Regular rate and rhythm with S1-S2. Lungs: Clear lungs Gastrointestinal: Abdomen is soft, nontender, and nondistended with positive bowel sounds. Skin: Warm and dry. No rash or lesions on limited exam. Extremities: No cyanosis, clubbing, or edema. Neurological: No gross focal deficits to casual conversation. Psychiatric: Appropriate mood. DS: Data Data Completed and Pending Labs on day of discharge: Labs from last 24 hours 09/25/20 09/25/20 09/25/20 11:12 08:43 05:42 WBC RBC Hgb Hct MCV MCH MCHC RDW Plt Count MPV Sodium Potassium Chloride Carbon Dioxide Anion Gap BUN Creatinine Estim Creat Clear Calc Estimated GFR Glucose POC Capillary Glucose 500 H 436 H Calcium Alpha-1-AT Phenotype Pending 09/25/20 09/25/20 09/24/20 05:42 05:42 21:29 WBC 16.8 H RBC 5.60 H Hgb 15.1 H Hct 44.5 MCV 79.5 L MCH 27.0 MCHC 33.9 RDW 12.8 Plt Count 259 MPV 10.8 H Sodium 132 L Potassium 4.0 Chloride 97 L Carbon Dioxide 28 Anion Gap 7 L BUN 16 Creatinine 0.40 L Estim Creat Clear Calc 141 Estimated GFR > 60 Glucose 366 H POC Capillary Glucose 396 H Calcium 8.7 Alpha-1-AT Phenotype 09/24/20 17:25 WBC RBC Hgb Hct MCV MCH MCHC RDW Plt Count MPV Sodium Potassium Chloride Carbon Dioxide Anion Gap BUN Creatinine Estim Creat Clear Calc Estimated GFR Glucose POC Capillary Glucose 396 H Calcium Alpha-1-AT Phenotype Discharge Plan Discharge Attending physician on discharge: Rohini Sullivan Consulting providers: Meredith Du ; ; [facility]
== END 2020-09-25 14:41 | disposition home or self-care (01) | DRG 192 ==
LOC: ANHED 17:24 → ANH3MEDSUR 17:58
PROVIDERS: Internal Medicine Critical Care Medicine; Physician Assistant; Admitting Provider Student in an Organized Health Care Education/Training Program; Emergency Provider Emergency Medicine; Visit Provider Family Medicine
DX: J44.1 Chronic obstructive pulmonary disease with (acute) exacerbation (principal); Z20.828 Contact with and (suspected) exposure to other viral communicable diseases; F17.210 Nicotine dependence, cigarettes, uncomplicated; E11.65 Type 2 diabetes mellitus with hyperglycemia; D75.1 Secondary polycythemia; D72.829 Elevated white blood cell count, unspecified; I25.10 Atherosclerotic heart disease of native coronary artery without angina pectoris; K21.9 Gastro-esophageal reflux disease without esophagitis; I10 Essential (primary) hypertension; Z23 Encounter for immunization; Z79.4 Long term (current) use of insulin; Z79.899 Other long term (current) drug therapy; Z88.0 Allergy status to penicillin
CPT/HCPCS: 36415; 36600; 71045; 80048; 80053; 82104; 82805; 83036; 83880; 84484; 85025; 85027; 87635; 90471; 90653; 93005; 94640; 94667; 94668; 96361; 96372; 96374; 99285; A9270; C9803; G0008; G0378; J1650; J1815; J1956; J2920; J7030; J7512; U0003

== ENCOUNTER 2020-11-30 08:44 | Outpatient (CLI) | payer BC, SELFPAY ==
--- NOTE | 2020-12-03 14:46 | WPDPFTINT ---
PFT Interpretation PFT Interpretation: This PFT met all criteria for ATS standards and reproducibility FEV/FVC post bronchodilator 74% FEV1 91% FVC 93% TLC 102% RV 121% RV/TLC 43% DLCO 78% when adjusted for alveolar volume but not adjusted for hemoglobin Flow volume loops were normal Impression: Possible mild small airway obstruction with air trapping and mildly decreased diffusion capacity. This pattern may be suggestive of mild COPD. Clinical correlation is advised.
--- NOTE | 2020-12-03 14:51 | WPDSIXMINUTE ---
Six Minute Walk Six Minute Walk: The patients O2 sats started at 95% and dropped as low as 92% Total walk distance 396.24 meters conclusion: This patient does not qualify for home oxygen therapy
== END 2020-11-30 08:45 | disposition home or self-care (01) ==
PROVIDERS: Visit Provider Nurse Practitioner Family
DX: R06.02 Shortness of breath (principal); Z72.0 Tobacco use
CPT/HCPCS: 94060; 94618; 94726; 94729

== ENCOUNTER 2023-08-15 06:39 | Inpatient (IN) | payer BC, SELFPAY ==
[2023-08-15] VITALS (17 sets, daily range): BP systolic 128–165; BP diastolic 84–107; PULSE 74–109; RESP 9–22; TEMP 36.6–37; O2SAT 94–98; BMI 31.0
--- NOTE | 2023-08-15 | ECHO_ITS ---
Patient Info Name: Kimber Sauceda Age: 57 years : 1965 Gender: Female Ht: 65 in Wt: 197 lbs BSA: 2.06 m2 HR: 109 bpm BP: 128 / 90 mmHg Heart Rhythm: Sinus Rhythm Technical Quality: Fair Exam Date: 08/15/2023 12:43 PM Exam Location: [facility] Pulmonary Patient Status: Inpatient Admit Date: 08/15/2023 Staff Ordering Physician: Román Hinton MD Drywall Mechanic: Keke Land RDCS Attending Provider: Román Hinton MD Exam Type: CA echo dop color flow w con Study Info Indications - ANTERIOR ST-ELEVATION NV Complete two-dimensional, color flow and Doppler transthoracic echocardiogram is performed with contrast to opacify the left ventricle and to improve the deliniation of the left ventricle endocardial borders. Contrast/Agitated Saline Contrast/Ag. Saline: Definity Amount: 2.00 ml Administered By: Keke Land RDCS Existing IV Access: Yes IV Access Condition: patent with no signs of infiltration Summary 1. Left ventricular chamber dimension is mildly enlarged. 2. Left ventricular systolic function is moderately reduced, estimated at 35-40%. 3. There is moderately increased left ventricular wall thickness. 4. The left ventricular diastolic function is grade I diastolic dysfunction. 5. Cannot R/O thrombus. 6. The apex, and mid anteroseptal are akinetic. 7. The mid anterior wall is hypokinetic. 8. Left atrial chamber dimension is mildly enlarged. 9. There is mild mitral valve regurgitation. 10. The mitral valve annulus is mildly calcified. 11. There is mild tricuspid valve regurgitation. 12. Mild pulmonary hypertension, estimated pulmonary arterial systolic pressure is 35 mmHg. Left Ventricle Cannot R/O thrombus. Left ventricular chamber dimension is mildly enlarged. Left ventricular systolic function is moderately reduced, estimated at 35-40%. There is moderately increased left ventricular wall thickness. The left ventricular diastolic function is grade I diastolic dysfunction. The apex, and mid anteroseptal are akinetic. The mid anterior wall is hypokinetic. All other wade appear normal. Right Ventricle Right ventricular chamber dimension is normal. Right ventricular systolic function is normal. Left Atria Left atrial chamber dimension is mildly enlarged. Right Atria Right atrial chamber dimension is normal. Atrial Septum Intact interatrial septum visualized by color flow imaging. Aortic Valve The aortic valve is trileaflet. There is mild aortic valve sclerosis. There is no aortic valve stenosis. There is trace aortic valve regurgitation. Pulmonic Valve The pulmonic valve is normal. There is no pulmonic valve stenosis. There is trace pulmonic regurgitation. Mitral Valve The mitral valve has thickened leaflets. There is no mitral valve stenosis. There is mild mitral valve regurgitation. The mitral valve annulus is mildly calcified. Tricuspid Valve The tricuspid valve leaflets are normal. There is no significant tricuspid valve stenosis. There is mild tricuspid valve regurgitation. Mild pulmonary hypertension, estimated pulmonary arterial systolic pressure is 35 mmHg. Pericardium/Pleural The pericardium appears normal. There is trivial pericardial effusion. Inferior Vena Cava Normal inferior vena cava with <50% collapse upon inspiration consistent with elevated right atrial pressure, 10 mmHg. Aorta The aortic root size at the sinus of Valsalva is normal. There is mild aortic atherosclerosis. Left Ventricular Outflow Tract
--- NOTE | 2023-08-15 06:40 | ECG_ITS ---
Measurements Intervals [place] Rate: 102 P: 52 OH: 139 QRS: 26 QRSD: 90 T: 40 QT: 348 QTc: 455 Interpretive Statements SINUS TACHYCARDIA POSSIBLE ANTERIOR MYOCARDIAL INFARCTION , LIKELY RECENT [30 ms Q WAVE IN V3/V4, OR R < 0.2 mV IN V4] COMPARED TO ECG 09/21/2020 15:20:21 ST ELEVATIONS NOTED IN THE ANTEROLATERAL LEADS Electronically Signed On 08-15-2023 16:20:31 CDT by Patsy Simmons M.D.
[2023-08-15] MEDS: ASPIRIN 81 MG CHEWABLE TABLET 324 MG PO (06:49)
--- NOTE | 2023-08-15 06:49 | ED.CHESTPAIN ---
HPI - Chest Pain General Chief Complaint: Chest Pain Stated Complaint: STEMI Time Seen by Provider: 08/15/23 06:45 History of Present Illness HPI narrative: Patient brought to the emergency department by EMS with chest discomfort. Pain noted as severe and tight. Pain started roughly an hour prior to arrival. She had nausea and vomiting but denies all other review of systems including shortness of breath diaphoresis lightheadedness. Patient had a cardiac stent placed 2 years ago at [facility] Related Data Home Medications Medication Instructions Recorded Confirmed atorvastatin 40 mg tablet 80 mg PO DAILY 09/21/20 10/15/20 clonazepam 0.5 mg tablet 0.5 mg PO HS 09/21/20 10/15/20 dapagliflozin propanediol 5 mg 5 mg PO DAILY 09/21/20 10/15/20 tablet (Farxiga) gabapentin 300 mg capsule 300 mg PO HS 09/21/20 10/15/20 insulin aspart U-100 100 unit/mL 10 unit subcut TIDWM 09/21/20 10/15/20 subcutaneous solution (Novolog U-100 Insulin aspart) irbesartan 150 mg tablet 150 mg PO DAILY 09/21/20 10/15/20 metoprolol tartrate 100 mg tablet 100 mg PO BID 09/21/20 10/15/20 trazodone 100 mg tablet 100 mg PO HS 09/21/20 10/15/20 Allergies Allergy/AdvReac Type Severity Reaction Status Date / Time Penicillins Allergy Severe Difficulty Verified 10/15/20 10:43 Breathing Review of Systems Review of Systems: Review of systems negative except for as documented in the HPI [facility] Past Medical History Medical History (Updated 08/15/23 @ 06:52 by Gloria Valles MD) Cerebrovascular accident Documented in her EMR however the patient denies history of such to this examiner. Chronic obstructive pulmonary disease Coronary artery disease Patient reports a history of ME and had a cardiac catheterization, without intervention. Gastroesophageal reflux disease Hypertension Restless legs syndrome (RLS) Tobacco abuse Type 2 diabetes mellitus Surgical History Surgical History History of cardiac catheterization History of ear surgery Left side, repaired ruptured eardrum 3 years ago History of hysterectomy (~1996) Performed for reported pre cancerous changes. Family History Family History Mother , of COPD age 75; 2019 COPD (chronic obstructive pulmonary disease) Father Acute myocardial infarction of acute [place] age 73 Sibling , age 33 in 2005 Alcohol abuse Other Diabetes mellitus Hypertension Social History Social History Social History: Surrogate decision maker: Ayesha Ramsey, daughter. Code status: Full code. no vaping or marijuana use Smoking packs per day: 1.5 Smoking cigarettes per day: 30.0 Years smoked: 15 Smoking pack-years: 22.50 Smoking status: Current every day smoker Tobacco type: cigarettes Alcohol intake: never Substance use: never Additional living arrangements comments: Lives in [place] with her family. 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 Gender identity (if verbalized by the patient): Female Spiritual care concerns: No Exam Narrative: GENERAL: Well-appearing, well-nourished, and in pain clutching her chest HEAD: Normocephalic, atraumatic. EYES: PERRLA and EOMI. ENT: Nares clear, no rhinorrhea or epistaxis. Mucous membranes moist. NECK: Supple. CHEST: Clear to auscultation. No respiratory distress. HEART: Regular rate and rhythm. ABDOMEN: Soft, nontender, nondistended. EXTREMITIES: Normal range of motion. No edema. SKIN: Warm, dry, no rash. NEURO: No focal deficits. Alert and oriented x3. PSYCH: Normal mood and affect. Course Course Emergency Course: Consulted interventional list prior to patient arrival. Symptom initial EMS EKG. Sent in repeat EKG and discussed additio
[2023-08-15] MEDS: TICAGRELOR 90 MG TABLET 180 MG PO (06:50)
[2023-08-15] MEDS: ONDANSETRON INJ 4 MG/2 ML VIAL IV PUSH (06:50)
[2023-08-15] MEDS: HEPARIN SODIUM 5,000 UNITS/ML VIAL 4000 UNITS IV PUSH (06:51)
[2023-08-15] MEDS: HYDROmorphone HCL INJ (*CRX) 1 MG/ML SYR (06:57)
--- NOTE | 2023-08-15 06:58 | PC.NURSE ---
Upon arrival EDP Dr. Vernon VORMauro 0.5mg dilauded IVP. Closed loop communication to admin medication w correct dose, route, and medication. EDP confirmed. Pt received medication.
[2023-08-15 07:00] LABS: Basophils Absolute Auto 0.1 K/mm3 (0.0-0.1); Basophils Percent Auto 0.8 % (0.2-1.2); Eosinophils Absolute Auto 0.1 K/mm3 (0-0.3); Eosinophils Percent Auto 1.1 % (0-4.4); Hematocrit 47.7 % (37.0-47.0); Hemoglobin 15.7 g/dL (12.0-15.0); Immature Granulocyte Absolute 0.05 K/mm3 (0.00-0.031); Immature Granulocyte Percent A 0.5 % (0-0.5); Lymphocytes Absolute Auto 3.31 K/mm3 (0.9-3.2); Lymphocytes Percent Auto 30.4 % (18.3-44.2); Mean Corpuscular HGB Conc 32.9 g/dl (32-36); Mean Corpuscular Hemoglobin 26.8 pg (26-34); Mean Corpuscular Volume 81.4 fl (80-100); Mean Platelet Volume 11.3 fl (7.4-10.4); Monocytes Absolute Auto 0.6 K/mm3 (0.1-0.6); Neutrophils Absolute Auto 6.8 K/mm3 (1.3-6.7); Neutrophils Percent Auto 62.2 % (45.5-73.1); Platelet Count Result 246 k/mm3 (150-375); Red Blood Count 5.86 M/mm3 (4.2-5.4); Red Cell Distribution Width 13.8 % (11.5-14.5); White Blood Count 10.9 K/mm3 (4.5-10.0)
[2023-08-15 07:10] LABS: Alanine Aminotransferase 16 U/L (6-35); Albumin Level 3.8 g/dL (3.5-5.1); Alkaline Phosphatase 109 U/L (38-126); Anion Gap 9 mmol/L (8-16); Aspartate Amino Transferase 17 U/L (14-36); Bilirubin,Total 0.6 mg/dL (0.2-1.3); Blood Urea Nitrogen 11 mg/dL (7-17); Calcium 8.4 mg/dL (8.4-10.2); Carbon Dioxide 23 mmol/L (22-30); Chloride 100 mmol/L (98-107); Estimated CRCL calculation 115 ml/min; Estimated Glomerular Filt Rate > 60; Glucose 387 mg/dL (65-110); Potassium 3.3 mmol/L (3.4-5.0); Sodium 132 mmol/L (137-145)
[2023-08-15 07:25] LABS: Troponin I 0.077 ng/mL (0.000-0.034)
--- NOTE | 2023-08-15 08:45 | PM.IMHP ---
H&P: HPI History of Present Illness Date/Time: 08/15/23 08:45 Chief Complaint: chest pain that started about 1 hour before arrival to the hospital Narrative: 57-year-old female with CAD, history of PCI/stenting at outside hospital -intervention report not available; PAD ? history of Left leg intervention, hypertension, diabetes mellitus on insulin, obesity, heavy tobacco abuse. Patient presented to [facility] Emergency Room with complaints of chest pain that started about 1 hour prior to the arrival. She describes has pain as sharp pain in the anterior chest, associated with shortness of breath, nausea and vomiting. She denied any palpitation, dizziness or syncope. Patient's EKG on my personal interpretation showed sinus tachycardia, ST elevation in the anterior leads. Cardiac catheterization lab was activated for primary PCI. 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 She said that she had PCI/ stenting few years ago at [facility]. Intervention report not available. She has not had regular follow-up visit over the years. Her medication compliance is questionable. She smokes heavily, 1 pack per day. Emergent coronary angiogram showed 100% thrombotic occlusion of mid LAD just distal to the diagonal branch. Patient underwent IVUS guided primary PCI/ APOLLO x2 mid LAD with islam of flow, however, sluggish blood flow was seen in the distal LAD. Left ventriculogram showed dyskinetic distal anterior and apical segment, preserved basal segments, ejection fraction about 40%. LVEDP elevated at 20 mmHg. Patient's chest discomfort significantly improved after PCI. Review of Systems Review of Systems: General: Negative for fever, chills, fatigue Psychological: Negative for anxiety, depression Ophthalmic: negative for loss of vision ENT: Negative for epistaxis, headaches Allergy and immunology: Negative for hives, nasal congestion Hematologic and lymphatic: Negative for overt bleeding problems Endocrine: Negative for hot flashes, palpitations Respiratory: Negative for cough, hemoptysis Cardiovascular: Positive for chest pain, shortness of breath Gastrointestinal: positive for nausea and vomiting Musculoskeletal: Negative for myalgia, joint pains Neurological: Negative for weakness Dermatological: Negative for rash, skin discoloration PMFSH Past Medical History Medical History (Updated 08/15/23 @ 08:56 by Román Hinton MD) Cerebrovascular accident Documented in her EMR however the patient denies history of such to this examiner. Chronic obstructive pulmonary disease Coronary artery disease Patient reports a history of PA and had a cardiac catheterization, without intervention. Diabetes mellitus Gastroesophageal reflux disease Hypertension Restless legs syndrome (RLS) Tobacco abuse Type 2 diabetes mellitus Surgical History Surgical History History of cardiac catheterization History of ear surgery Left side, repaired ruptured eardrum 3 years ago History of hysterectomy (~1996) Performed for reported pre cancerous changes. Family History Family History Mother , of COPD age 75; 2018 COPD (chronic obstructive pulmonary disease) Father Acute myocardial infarction of acute PA age 73 Sibling , age 33 in 2004 Alcohol abuse Other Diabetes mellitus Hypertension Social History Social History Social History: Surrogate decision maker: Ayesha Ramsey, daughter. Code status: Full code. no vaping or marijuana use Smoking packs per day: 1.5 Smoking cigarettes per day: 30.0 Years smoked: 15 Smoking pack-years: 22.50 Smoking status: Current every day smoker Tobacco type: cigarettes Alcohol intake: never Substance use:
[2023-08-15 08:55] LABS: Cholesterol 229 mg/dL (0-200); HDL Direct 38 mg/dL; Triglycerides 302 mg/dL (<150)
--- NOTE | 2023-08-15 08:58 | WPDCARDPROC ---
Cardiac Cath Procedure Note Date of procedure:: 08/15/23 Performing physician:: Román Hinton MD Procedure Procedure note:: EMERGENT CARDIAC CATHETERIZATION AND PERCUTANEOUS CORONARY INTERVENTION REPORT DATE OF PROCEDURE: 08/15/2023 INDICATION FOR PROCEDURE: acute coronary syndrome -anterior ST-elevation myocardial infarction BRIEF CLINICAL HISTORY:57-year-old female with CAD, history of PCI/stenting? at outside hospital -intervention report not available; PAD ? history of? Left leg intervention, hypertension, diabetes mellitus on insulin, obesity, heavy tobacco abuse.? Patient presented to [facility] with complaints of chest pain that started about 1 hour prior to the arrival.? Patient's EKG on my personal interpretation showed sinus tachycardia, ST elevation in the anterior leads.? Cardiac catheterization lab was activated for primary PCI.? 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 She said that she had PCI/ stenting few years ago at [facility].? Intervention report not available.? She has not had regular follow-up visit over the years. Her medication compliance is questionable.? She smokes heavily, 1 pack per day. PROCEDURES PERFORMED: 1. Left heart catheterization- Selective left and right coronary angiogram; left ventriculogram and hemodynamic assessment 2. Percutaneous coronary intervention- a) balloon angioplasty and stenting of totally occluded mid LAD using 2 Biotronik sirolimus eluting stents in overlapping fashion ( 3.0 x 26 mm, 3.0 x 9 mm); b) intravascular ultrasound ( IVUS) of LAD 3. Deployment of Mynx hemostatic device 4. Moderate sedation-CPT code 79978 and beyond MODERATE SEDATION: Midazolam 2 mg; fentanyl 50 mcg. Start time 0720 , Stop time 0827 ; Total cgcw-fm-ldfn time 67 minutes; Chidi Crow RN was trained observer for moderate sedation. ACCESS SITE: Right common femoral artery PROCEDURE NOTE: patient was emergently brought to catheterization lab and prepped and draped in a usual sterile manner. After local anesthesia with lidocaine, right common femoral artery access was taken with micropuncture needle followed by insertion of a 6 Scottish sheath. Selective left and right coronary angiogram was performed using 6 Scottish CLS guide catheter and JR4 diagnostic catheters respectively. Orthogonal views were taken. after completion of PCI, 5 Scottish pigtail catheter was advanced in the LV cavity and was flushed with normal saline. LV pressure measurement was performed. After this, left ventriculogram was performed. The catheter was flushed again, and gradient across the aortic valve was measured on the pullback of the catheter. After completion of procedure, vascular closure device was deployed with good hemostasis. Patient tolerated procedure well without any immediate procedure related complications. FINDINGS: LEFT MAIN CORONARY: the LAD is a medium caliber vessel with about 20-30% narrowing in the distal segment before it bifurcates into LAD and left circumflex branches. LEFT ANTERIOR DESCENDING ARTERY: LAD is a large caliber vessel in the proximal segment with mild diffuse about 30-40% stenosis. There is 100% thrombotic occlusion in the mid segment distal to the origin of the diagonal branch which runs parallel to the LAD. The diagonal branch has about70% stenosis at the ostium. Post PCI, sluggish blood flow is seen in the distal LAD which is the smaller caliber vessel. LEFT CIRCUMFLEX ARTERY: Medium caliber vessel with diffuse 40-50% stenosis in the proximal segment. The vessel gives rise to medium caliber OM1 branch which has 30-40% stenosis in the proximal segment. OM2 branch is a smaller caliber vessel. RIGHT CORONARY ARTERY: Large caliber, dominant vessel, tortuous. Minor diffuse plaque is seen in the proximal segment and 30-50% stenosis in the mid segment. Probable stents in the distal segment patent. Carisa
[2023-08-15 09:05] LABS: LDL Cholesterol Direct 143 mg/dL
--- NOTE | 2023-08-15 09:19 | WPDCNINT ---
Assessment and Plan Assessment and plan (1) ST elevation (STEMI) myocardial infarction: Qualifiers: Involved coronary artery: unspecified coronary artery Qualified Code(s): I21.3 - ST elevation (STEMI) myocardial infarction of unspecified site Code(s): I21.3 - ST elevation (STEMI) myocardial infarction of unspecified site Status: Acute Assessment and Plan: Status post PCI and drug-eluting stent placement in LAD aspirin statin metoprolol irbesartan and Brilinta ICU telemetry monitoring Check echocardiogram (2) Diabetes mellitus: Code(s): E11.9 - Type 2 diabetes mellitus without complications Status: Acute Assessment and Plan: Patient is noncompliant and does not take her medication regularly Start sliding scale insulin Check A1c Add metformin Obtain records from PCP Elsa (3) Chronic obstructive pulmonary disease: Qualifiers: COPD type: unspecified COPD Qualified Code(s): J44.9 - Chronic obstructive pulmonary disease, unspecified Code(s): J44.9 - Chronic obstructive pulmonary disease, unspecified Status: Acute Assessment and Plan: Gregg p.r.n. Resume Symbicort (4) Hypertension: Code(s): I10 - Essential (primary) hypertension Status: Chronic Assessment and Plan: ARB and beta-millie Monitor adjust accordingly (5) Tobacco abuse: Code(s): Z72.0 - Tobacco use Status: Acute Assessment and Plan: Patient was strongly counseled and encouraged to quit smoking Plan DVT prophylaxis -Lovenox Nutrition -diabetic diet Code Status - Full Code Total Critical Care Time - 32 minutes Due to a high probability of clinically significant, life threatening deterioration, the patient required my highest level of preparedness to intervene emergently and I personally spent this critical care time directly and personally managing the patient. This critical care time included obtaining a history; examining the patient; pulse oximetry; ordering and review of studies; arranging urgent treatment with development of a management plan; evaluation of patient's response to treatment; frequent reassessment; and discussions with other providers. It was exclusive of separately billable procedures and treating other patients and teaching time. 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 Patient states pain started around 5:00 a.m. this morning after she dropped her to work. Pain was 10/10, started on the left side of the chest but then went towards the whole chest and her back. Pain was pressure in quality as if an elephant was sitting on her chest. Chest pain was as severe shortness of breath nausea vomiting. No dizziness or lightheadedness. Pain resolved after procedure and she states right now she just feels uncomfortable with little bit of tightness which is worse with deep breathing. She states she was feeling fine prior to this event. Review of system was positive for chronic dry cough. Pain in the legs walking. Other systems were reviewed and were negative. In ED patient was found to be having ST elevation in anterior leads and STEMI was activated. Patient was taken to cardiac catheterization lab and underwent balloon angioplasty and stenting of totally occluded mid LAD with 2 drug-eluting stents. Patient was noticed to have dyskinesis of distal anterior and apical segments LVEDP of 20. Patient now admitted to ICU for further evaluation management. Review of Systems Review of Systems: All systems reviewed & are unremarkable except as noted in HPI and below
[2023-08-15] MEDS: SODIUM CHLORIDE 0.9% IV 1,000 ML 75 ML IV CONT (09:46)
[2023-08-15] MEDS: IRBESARTAN 75 MG TABLET PO (09:47)
[2023-08-15] MEDS: METOPROLOL TARTRATE 25 MG TABLET PO ×2 (09:47→20:16)
[2023-08-15 10:06] LABS: Hemoglobin A1C 10.3 % (<5.7)
[2023-08-15] MEDS: FLUTICASONE/SALMETEROL 115-21 MCG INHALER 1 PUFF 2 PUFF INHALATION ×2 (10:10→19:34)
[2023-08-15] MEDS: INSULIN GLARGINE (*BKC) 100 UNITS/ML 10 UNITS SUB-Q (10:48)
[2023-08-15 12:29] LABS: Glucose Point of Care 297 mg/dl (65-105)
[2023-08-15] MEDS: INSULIN ASPART (*BKC) 100 UNITS/ML SUB-Q ×3 (12:31→20:19)
--- NOTE | 2023-08-15 12:41 | PC.NURSE ---
0855- This patient, Kimber Sauceda, was admitted to Intensive Care Unit-6. Patient/family oriented to hospital policies and general routines including ID bracelet, bed and alarms, visiting hours, pain management, procedures, bathroom and other care routines, personal items, smoking policy, room service/diet, and visiting hours. Information on how to activate the Rapid Response Team has been discussed. Patient/Family are encouraged to report perceived risks to care and to ask questions if they do not understand what they are told or what they should do.
[2023-08-15] MEDS: PERFLUTREN LIPID MICROSPHERES 1.5 ML VIAL DILUTED TO 10 ML TOTAL VOLUME IV PUSH (13:12)
[2023-08-15] MEDS: oxyCODONE/ACETAMINOPHEN (*CRX) 5-325 MG TABLET 1 TABLET PO (14:34)
--- NOTE | 2023-08-15 16:25 | IVDEFINITY ---
Prior to administration of IV Definity the patient was educated on the risks and benefits of the imaging enhancing agent including potential adverse side effects. The patient verbalized understanding. Allergies were verified. No exclusion criteria were identified and at least one of the following inclusion criteria were met: 1) physician request, 2) patient technically difficult to image (per the [place] [employer] guidelines of two or more segments not discernable within the apical view), or 3) questionable left ventricular function. ?
[2023-08-15 16:54] LABS: Glucose Point of Care 247 mg/dl (65-105)
[2023-08-15] MEDS: metFORMIN HCL 500 MG TABLET PO (16:58)
[2023-08-15] MEDS: GABAPENTIN 300 MG CAPSULE PO (20:16)
[2023-08-15] MEDS: TICAGRELOR 90 MG TABLET PO (20:16)
[2023-08-15 20:19] LABS: Glucose Point of Care 217 mg/dl (65-105)
[2023-08-16] VITALS (16 sets, daily range): BP systolic 102–149; BP diastolic 69–93; PULSE 77–143; RESP 12–23; TEMP 36.8–36.9; O2SAT 93–98; BMI 31.9
[2023-08-16 03:54] LABS: Hemoglobin 15.6 g/dL (12.0-15.0); Mean Corpuscular HGB Conc 31.8 g/dl (32-36); Mean Corpuscular Hemoglobin 26.1 pg (26-34); Mean Corpuscular Volume 82.1 fl (80-100); Platelet Count Result 224 k/mm3 (150-375); Red Blood Count 5.97 M/mm3 (4.2-5.4); Red Cell Distribution Width 14.3 % (11.5-14.5); White Blood Count 14.6 K/mm3 (4.5-10.0)
[2023-08-16 04:08] LABS: Alanine Aminotransferase 51 U/L (6-35); Albumin Level 3.6 g/dL (3.5-5.1); Alkaline Phosphatase 111 U/L (38-126); Anion Gap 4 mmol/L (8-16); Aspartate Amino Transferase 273 U/L (14-36); Bilirubin,Total 1.1 mg/dL (0.2-1.3); Blood Urea Nitrogen 8 mg/dL (7-17); Calcium 8.5 mg/dL (8.4-10.2); Carbon Dioxide 25 mmol/L (22-30); Chloride 102 mmol/L (98-107); Estimated CRCL calculation 135 ml/min; Estimated Glomerular Filt Rate > 60; Glucose 219 mg/dL (65-110); Magnesium 1.8 mg/dL (1.6-2.3); Potassium 3.6 mmol/L (3.4-5.0); Sodium 131 mmol/L (137-145)
[2023-08-16 08:13] LABS: Glucose Point of Care 266 mg/dl (65-105)
[2023-08-16] MEDS: metFORMIN HCL 500 MG TABLET PO ×2 (08:42→17:40)
[2023-08-16] MEDS: POTASSIUM CHLORIDE 20 MEQ ER TABLET 40 MEQ PO (08:42)
[2023-08-16] MEDS: ASPIRIN 81 MG ENTERIC TABLET PO (08:42)
[2023-08-16] MEDS: TICAGRELOR 90 MG TABLET PO ×2 (08:43→20:15)
[2023-08-16] MEDS: ATORVASTATIN 40 MG TABLET 80 MG PO (08:43)
[2023-08-16] MEDS: METOPROLOL TARTRATE 25 MG TABLET PO (08:43)
[2023-08-16] MEDS: IRBESARTAN 75 MG TABLET PO (08:43)
[2023-08-16] MEDS: INSULIN GLARGINE (*BKC) 100 UNITS/ML 20 UNITS SUB-Q (08:44)
[2023-08-16] MEDS: FLUTICASONE/SALMETEROL 115-21 MCG INHALER 1 PUFF 2 PUFF INHALATION ×2 (08:44→20:55)
[2023-08-16] MEDS: INSULIN ASPART (*BKC) 100 UNITS/ML SUB-Q ×3 (08:48→17:40)
--- NOTE | 2023-08-16 09:29 | WPDINTPN ---
Progress Note: A&P Assessment and Plan (1) ST elevation (STEMI) myocardial infarction: Qualifiers: Involved coronary artery: unspecified coronary artery Qualified Code(s): I21.3 - ST elevation (STEMI) myocardial infarction of unspecified site Code(s): I21.3 - ST elevation (STEMI) myocardial infarction of unspecified site Status: Acute Assessment and Plan: Status post PCI and drug-eluting stent placement in LAD aspirin statin metoprolol irbesartan and Brilinta ICU telemetry monitoring Echocardiogram as below (2) Ischemic cardiomyopathy: Code(s): I25.5 - Ischemic cardiomyopathy Status: Acute Assessment and Plan: Echo summary ? 1. Left ventricular chamber dimension is mildly enlarged. ? 2. Left ventricular systolic function is moderately reduced, estimated at 35-40%. ? 3. There is moderately increased left ventricular wall thickness. ? 4. The left ventricular diastolic function is grade I diastolic dysfunction. ? 5. Cannot R/O thrombus. ? 6. The apex, and mid anteroseptal are akinetic. ? 7. The mid anterior wall is hypokinetic. ? 8. Left atrial chamber dimension is mildly enlarged. ? 9. There is mild mitral valve regurgitation. ? 10. The mitral valve annulus is mildly calcified. ? 11. There is mild tricuspid valve regurgitation. ? 12. Mild pulmonary hypertension, estimated pulmonary arterial systolic pressure is 35 mmHg Will discuss with Cardiology regarding [place] to rule out cardiac thrombus. Will start empiric anticoagulation in the form of Lovenox 1 mg per kg q.12 hours Discussed with patient regarding initiation of anticoagulation and risks and benefits associated with it Patient on ARB and beta-millie (3) Diabetes mellitus: Code(s): E11.9 - Type 2 diabetes mellitus without complications Status: Acute Assessment and Plan: Patient is noncompliant and does not take her medication regularly. She states she was on metformin and insulin the past but discontinued due to either side effects or cost Continue Lantus and sliding scale insulin Continue metformin at low-dose A1c 10.3 Will defer initiation of further oral diabetic medications to internal medicine as patient will be transferred out of ICU today (4) Chronic obstructive pulmonary disease: Qualifiers: COPD type: unspecified COPD Qualified Code(s): J44.9 - Chronic obstructive pulmonary disease, unspecified Code(s): J44.9 - Chronic obstructive pulmonary disease, unspecified Status: Acute Assessment and Plan: DuoNeb p.r.n. Continue symbicort (5) Hypertension: Code(s): I10 - Essential (primary) hypertension Status: Chronic Assessment and Plan: Continue aRB and beta-millie Monitor adjust accordingly (6) Tobacco abuse: Code(s): Z72.0 - Tobacco use Status: Acute Assessment and Plan: Patient was strongly counseled and encouraged to quit smoking Plan DVT prophylaxis -Lovenox Nutrition -diabetic diet Code Status - Full Code Incentive spirometry Transfer out ICU today Subjective Date/time seen: 08/16/23 Overnight events reviewed. Afebrile On room air Sinus rhythm on the tele monitor Other vitals acceptable She states she is feeling much better and denies any new complaints. She states she has little bit of discomfort in her chest especially with deep breathing. she continues to have dry nonproductive cough. Denies any other complaints. All other systems were reviewed and were negative Review of Systems Review of Systems: All systems reviewed & are unremarkable except as noted in HPI and below (HPI) Exam Narrative: General: Pt is alert awake and in NAD Lungs/Chest: Trachea central Clear BS B/L, No crackles or wheezing. Cardiac: RRR. Normal S1 S2. No murmurs Circulation: Left dorsalis pedis is palpable, right dorsalis pedis is not palpable or dopplerable, right posterior tibial is dopplerable. Both feet have same colo
--- NOTE | 2023-08-16 11:20 | PCFNICU ---
ICU Rounding Note: Pt current nutrition is DBCC. Last recorded weight is 87.1 kg. Bowel Motility: No BM reported. Labs Reviewed:Glu 219, Cr 0.4,Na 131, Hct 49.0,Hgb 15.6 Meds Noted:Lantus, NovoLog, Glucophage, Brilinta, Lopressor Skin: WNL Additional Notes:Patient diet order has advanced to a DBCC diet. Intake has been poor0-10% reported. PO intake encouraged. Agree with diet orders. Following daily in ICU rounds.
--- NOTE | 2023-08-16 11:44 | PM.PNCARD ---
Progress Note: A&P Assessment and Plan (1) ST elevation (STEMI) myocardial infarction: Qualifiers: Involved coronary artery: unspecified coronary artery Qualified Code(s): I21.3 - ST elevation (STEMI) myocardial infarction of unspecified site Code(s): I21.3 - ST elevation (STEMI) myocardial infarction of unspecified site Status: Acute Assessment and Plan: 57-year-old female with CAD, history of PCI/stenting at outside hospital -intervention report not available; PAD ? history of Left leg intervention, hypertension, diabetes mellitus on insulin, obesity, heavy tobacco abuse. Patient presented with ACS/anterior ST-elevation CA, found to have 100% thrombotic occlusion of mid LAD, status post IVUS guided PCI / APOLLO x2. -admit to ICU, monitor on telemetry. - dual antiplatelet therapy with aspirin and ticagrelor; continue beta-millie, ARB , high-dose atorvastatin. On enoxaparin for now. No clearly was thrombus but cannot be completely ruled out at this point. Will repeat a limited echo before discharge. Will increase metoprolol to 50 mg p.o. b.i.d.. Continue other medications without change (2) Hypertension: Code(s): I10 - Essential (primary) hypertension Status: Chronic Assessment and Plan: Restart metoprolol tartrate,irbesartan. Monitor blood pressure. (3) Tobacco abuse: Code(s): Z72.0 - Tobacco use Status: Acute Assessment and Plan: smoking cessation counseling was done. (4) Diabetes mellitus: Code(s): E11.9 - Type 2 diabetes mellitus without complications Status: Acute Assessment and Plan: optimal diabetes mellitus control. Spoke with ICU physician who will manage patient's diabetes mellitus. May consider hospitalist consultation as necessary. (5) Ischemic cardiomyopathy: Code(s): I25.5 - Ischemic cardiomyopathy Status: Acute Subjective Date/time seen: 08/16/23 11:44 Interval history: 57-year-old with CAD and STEMI Date of service 08/16/2023: No chest pain or shortness of breath. Feels tired. No groin pain Review of Systems Review of Systems: All systems reviewed & are unremarkable except as noted in HPI and below Constitutional: Constitutional: Denies body ache(s) ENT: Denies epistaxis Cardiovascular: Cardiovascular: Denies chest pain and Denies lightheadedness Respiratory: Respiratory: Denies dyspnea on exertion Gastrointestinal: Gastrointestinal: Denies abdominal pain Exam Narrative: PHYSICAL EXAMINATION: GENERAL: obese, Alert, oriented, mild distress due to chest pain MENTAL STATUS: anxious EYES: Extraocular movements intact, no pallor EARS: External ears appear normal, hearing grossly normal NOSE: Normal and patent, no discharge MOUTH: Mucous membranes moist, tongue normal NECK: Supple, no JVD CHEST: Good respiratory effort HEART: Normal rate, regular rhythm, normal S1 and S2, no audible murmurs ABDOMEN: Soft, nontender NEUROLOGICAL: Alert, oriented, normal speech, no gross motor deficits MUSCULOSKELETAL: No major deformity, no amputation EXTREMITIES: No pedal edema, no clubbing, no cyanosis SKIN: no rash on the exposed area, no cyanosis PSYCHIATRIC: anxious Objective Data Vital Signs Vital Signs: Vital Signs - 24 hr 08/15/23 12:00 08/15/23 12:00 08/15/23 12:00 Temperature 36.8 C Pulse Rate 81 81 81 Respiratory Rate 14 14 Blood Pressure 165/101 H Pulse Oximetry 95 95 Oxygen Delivery Room Air 08/15/23 14:00 08/15/23 14:00 08/15/23 16:00 Temperature Pulse Rate 75 75 99 Respiratory Rate 14 Blood Pressure 161/101 H Pulse Oximetry 98 Oxygen Delivery 08/15/23 16:00 08/15/23 16:00 08/15/23 18:00 Temperature 37.0 C Pulse Rate 98 98 86 Respiratory Rate 18 16 Blood Pressure 142/84 H Pulse Oximetry 96 96 Oxygen Delivery Room Air 08/15/23 18:00 08/15/23 19:34 08/15/23 20:00 Temperature 36.8 C Pul
[2023-08-16 12:18] LABS: Glucose Point of Care 233 mg/dl (65-105)
[2023-08-16] MEDS: ENOXAPARIN 100 MG/ML SYRINGE 90 MG SUB-Q ×2 (12:20→20:15)
[2023-08-16 17:33] LABS: Glucose Point of Care 214 mg/dl (65-105)
[2023-08-16] MEDS: GABAPENTIN 300 MG CAPSULE PO (20:14)
[2023-08-16] MEDS: METOPROLOL TARTRATE 50 MG TAB PO (20:14)
[2023-08-16 20:27] LABS: Glucose Point of Care 177 mg/dl (65-105)
--- NOTE | 2023-08-16 23:32 | ECG_ITS ---
Measurements Intervals [place] Rate: 133 P: [place]: 0 QRS: 47 QRSD: 105 T: 184 QT: 341 QTc: 508 Interpretive Statements ATRIAL FIBRILLATION WITH RAPID VENTRICULAR RESPONSE WITH ABERRANT CONDUCTION OR VENTRICULAR PREMATURE COMPLEXES ANTERIOR MYOCARDIAL INFARCTION [40+ ms Q WAVE AND/OR ST/T ABNORMALITY IN V3/V4], PROBABLY RECENT ABNORMAL ECG COMPARED TO ECG 08/15/2023 06:42:55 ATRIAL FIBRILLATION NOW PRESENT ABERRANT CONDUCTION OF SUPRAVENTRICULAR BEAT(S) NOW PRESENT Electronically Signed On 08-17-2023 9:01:30 CDT by Jw Weathers M.D.
--- NOTE | 2023-08-16 23:54 | ECG_ITS ---
Measurements Intervals [place] Rate: 149 P: [place]: 0 QRS: 39 QRSD: 99 T: 187 QT: 271 QTc: 427 Interpretive Statements ATRIAL FIBRILLATION WITH RAPID VENTRICULAR RESPONSE ANTEROLATERAL MYOCARDIAL INFARCTION [40+ ms Q WAVE IN I/aVL/V3-V6], PROBABLY RECENT ACUTE [place] ABNORMAL ECG COMPARED TO ECG 08/16/2023 23:34:17 NO SIGNIFICANT CHANGES Electronically Signed On 08-17-2023 9:01:58 CDT by Jw Weathers M.D.
[2023-08-17] VITALS (33 sets, daily range): BP systolic 70–124; BP diastolic 52–85; PULSE 76–155; RESP 12–26; TEMP 36.2–36.9; O2SAT 94–100
[2023-08-17] MEDS: MORPHINE SULFATE (*CRX) 2 MG/ML INJ IV PUSH (00:06)
[2023-08-17] MEDS: METOPROLOL TARTRATE INJ 5 MG/5 ML VIAL IV PUSH (00:07)
[2023-08-17] MEDS: AMIODARONE 150 MG/D5W 100 ML 150 MG/100 ML BAG 600 MG IV CONT ×4 (00:21→09:15)
[2023-08-17 00:34] LABS: Anion Gap 9 mmol/L (8-16); Blood Urea Nitrogen 10 mg/dL (7-17); Calcium 8.6 mg/dL (8.4-10.2); Carbon Dioxide 23 mmol/L (22-30); Chloride 103 mmol/L (98-107); Estimated CRCL calculation 113 ml/min; Estimated Glomerular Filt Rate > 60; Glucose 181 mg/dL (65-110); Magnesium 1.9 mg/dL (1.6-2.3); Phosphorus 3.2 mg/dL (2.5-4.5); Potassium 3.7 mmol/L (3.4-5.0); Sodium 135 mmol/L (137-145)
[2023-08-17] MEDS: AMIODARONE 360 MG/D5W 200 ML 360 MG/200 ML BAG 33.33 MG IV CONT (00:36)
[2023-08-17] MEDS: SODIUM CHLORIDE 0.9% IV 250 ML 999 ML IV CONT ×2 (00:41→02:45)
--- NOTE | 2023-08-17 00:45 | PC.NURSE ---
RN at bedside to assess pt at 2330. Pt's HR 130s-140s. EKG obtained and page placed to cardiology. ANGELA Doss reviewed EKG and requested repeat EKG to be obtained and reported to Dr. Florez. Repeat page placed to cardiology while Dr. Florez was at bedside to review all EKGs. Per Dr. Florez there are no ST elevation changes. Metoprolol 5 mg IVP and Morphine 2 mg IVP administered per Dr. Florez's order. Amio bolus and protocol ordered per Dr. Boyle.
[2023-08-17] MEDS: SODIUM CHLORIDE 0.9% IV 500 ML 999 ML IV CONT (02:15)
[2023-08-17] MEDS: ADENOSINE IV SOLN 6 MG/2 ML VIAL IV PUSH (02:18)
[2023-08-17] MEDS: ADENOSINE IV SOLN 6 MG/2 ML VIAL 12 MG IV PUSH (02:20)
--- NOTE | 2023-08-17 02:53 | ECG_ITS ---
Measurements Intervals [place] Rate: 78 P: 15 RI: 137 QRS: 59 QRSD: 93 T: 165 QT: 487 QTc: 558 Interpretive Statements SINUS RHYTHM ANTERIOR MYOCARDIAL INFARCTION [40+ ms Q WAVE AND/OR ST/T ABNORMALITY IN V3/V4], PROBABLY RECENT ACUTE DE ABNORMAL ECG COMPARED TO ECG 08/16/2023 23:57:54 SINUS RHYTHM NOW PRESENT Electronically Signed On 08-17-2023 9:02:38 CDT by Jw Weathers M.D.
--- NOTE | 2023-08-17 03:04 | PM.CCN ---
Critical Care Event Note Summary Narrative: This case had a high probability of a clinically significant, sudden, or life threatening deterioration of this patient's condition which required my full and direct attention, intervention and personal management.
--- NOTE | 2023-08-17 03:08 | PM.EVENT ---
Event Note Event Note Event Note: Patient tachycardic with heart rate into the 160s blood pressure 70/50. Patient is awake alert. Subjective: Having chest discomfort Objective: awake alert diaphoretic General: Patient is laying in bed diaphoretic, awake alert HEENT: Atraumatic normocephalic PERRLA EOM intact neck supple no JVD no lymphadenopathy Respiratory: clear to auscultation bilaterally, no wheezes rhonchi or crackles. Cardiovascular: Tachycardic Abdomen: Soft nontender nondistended Extremities: No edema Central nervous system: Awake alert no focal sensorimotor deficit cranial nerves 2-12 grossly intact Assessment and plan 1. AFib with RVR: Patient giving adenosine 6 mg times once repeat 12 mg Rhythm returned as atrial flutter/a. fib. NS bolus 250 x 2 Amiodarone IV bolus 300 mg x 1 Oxygen by nasal cannula 4 L
--- NOTE | 2023-08-17 04:00 | PC.NURSE ---
0112 Dr. Boyle paged to discuss possible EKG changes, elevated troponin, and current SBP in the 70s. Awaiting return call. 0120 Dr. Florez paged to discuss elevated troponin and current SBP in the 70s. Awaiting return call. 0144 [facility] exchange called ICU. They are to re-page Dr. Boyle. Awaiting return call. [address] Florez. [address] Boyle. Orders received for hypotension and repeat amio bolus. No new orders regarding elevated troponin. EKG image sent to Dr. Boyle for review. Suggested pt may need possible emergent cardioversion. Dr. Boyle states he is aware of pt's full history. 0218 Dr. Florez at pt bedside. New orders received. See MAR. No new orders regarding elevated troponin.
[2023-08-17 04:06] LABS: Hematocrit 46.7 % (37.0-47.0); Hemoglobin 14.8 g/dL (12.0-15.0); Mean Corpuscular HGB Conc 31.7 g/dl (32-36); Mean Corpuscular Hemoglobin 26.5 pg (26-34); Mean Corpuscular Volume 83.7 fl (80-100); Mean Platelet Volume 11.6 fl (7.4-10.4); Platelet Count Result 224 k/mm3 (150-375); Red Blood Count 5.58 M/mm3 (4.2-5.4); Red Cell Distribution Width 14.6 % (11.5-14.5); White Blood Count 14.7 K/mm3 (4.5-10.0)
[2023-08-17 04:18] LABS: Alanine Aminotransferase 31 U/L (6-35); Albumin Level 3.1 g/dL (3.5-5.1); Alkaline Phosphatase 89 U/L (38-126); Anion Gap 6 mmol/L (8-16); Aspartate Amino Transferase 76 U/L (14-36); Bilirubin,Total 0.8 mg/dL (0.2-1.3); Blood Urea Nitrogen 11 mg/dL (7-17); Carbon Dioxide 23 mmol/L (22-30); Chloride 103 mmol/L (98-107); Estimated CRCL calculation 96 ml/min; Estimated Glomerular Filt Rate > 60; Glucose 239 mg/dL (65-110); Magnesium 1.7 mg/dL (1.6-2.3); Potassium 3.5 mmol/L (3.4-5.0); Sodium 132 mmol/L (137-145)
[2023-08-17 05:21] LABS: Procalcitonin 0.1 ng/mL
--- NOTE | 2023-08-17 05:44 | PC.NURSE ---
Dr. Boyle called to check on pt. Updated to current condition and vital signs. No new orders at this time.
[2023-08-17] MEDS: AMIODARONE 360 MG/D5W 200 ML 360 MG/200 ML BAG 16.67 MG IV CONT ×2 (06:15→18:41)
[2023-08-17] MEDS: FLUTICASONE/SALMETEROL 115-21 MCG INHALER 1 PUFF 2 PUFF INHALATION ×2 (07:19→20:15)
[2023-08-17 08:20] LABS: Glucose Point of Care 241 mg/dl (65-105)
[2023-08-17] MEDS: ASPIRIN 81 MG ENTERIC TABLET PO (08:47)
[2023-08-17] MEDS: ATORVASTATIN 40 MG TABLET 80 MG PO (08:47)
[2023-08-17] MEDS: METOPROLOL TARTRATE 50 MG TAB PO ×2 (08:48→20:10)
[2023-08-17] MEDS: IRBESARTAN 75 MG TABLET PO (08:48)
[2023-08-17] MEDS: TICAGRELOR 90 MG TABLET PO (08:48)
[2023-08-17] MEDS: ENOXAPARIN 100 MG/ML SYRINGE 90 MG SUB-Q (08:48)
--- NOTE | 2023-08-17 08:54 | ECG_ITS ---
Measurements Intervals [place] Rate: 133 P: [place]: 0 QRS: 32 QRSD: 93 T: 183 QT: 299 QTc: 446 Interpretive Statements ATRIAL FIBRILLATION WITH RAPID VENTRICULAR RESPONSE ANTERIOR MYOCARDIAL INFARCTION [40+ ms Q WAVE AND/OR ST/T ABNORMALITY IN V3/V4], PROBABLY RECENT MARKED ST ELEVATION, CONSIDER LATERAL INJURY [MARKED ST ELEVATION W/O NORMALLY INFLECTED T WAVE IN I/aVL/V5/V6] ACUTE [place] ABNORMAL ECG INTERPRETATION BASED ON A DEFAULT AGE OF 40 YEARS COMPARED TO ECG 08/17/2023 03:12:42 ATRIAL FIBRILLATION NOW PRESENT Electronically Signed On 08-17-2023 13:32:14 CDT by Jw Weathers M.D.
[2023-08-17] MEDS: INSULIN ASPART (*BKC) 100 UNITS/ML SUB-Q ×2 (09:03→12:06)
[2023-08-17] MEDS: metFORMIN HCL 500 MG TABLET PO ×2 (09:03→17:25)
[2023-08-17] MEDS: INSULIN GLARGINE (*BKC) 100 UNITS/ML 20 UNITS SUB-Q (09:03)
[2023-08-17 12:01] LABS: Glucose Point of Care 225 mg/dl (65-105)
--- NOTE | 2023-08-17 12:01 | PM.PNCARD ---
Progress Note: A&P Assessment and Plan (1) ST elevation (STEMI) myocardial infarction: Qualifiers: Involved coronary artery: unspecified coronary artery Qualified Code(s): I21.3 - ST elevation (STEMI) myocardial infarction of unspecified site Code(s): I21.3 - ST elevation (STEMI) myocardial infarction of unspecified site Status: Acute Assessment and Plan: Patient presented with ACS/anterior ST-elevation ID, found to have 100% thrombotic occlusion of mid LAD, status post IVUS guided PCI / APOLLO x2.? Echocardiogram with LVEF 35-40%, cannot rule out thrombus, mild TR. Patient was on ASA and Brilinta after PCI, however, now that she is in atrial fibrillation and requires full dose anticoagulation for stroke prophylaxis given [id number] of 4, will start Xarelto. Continue with ASA. As we are starting NOAC, will switch her Brilinta to Plavix. Patient will need to be on triple therapy (ASA, Plavix, Xarelto) for at least 1 month, and then can consider dropping the ASA. Continue high intensity statin. Continue Metoprolol. I will switch it to Succinate form. Continue Irbesartan. No clear thrombus was visualized, however, thrombus cannot be completely ruled out at this point.? Will repeat a limited echo before discharge.? (2) Atrial fibrillation with RVR: Code(s): I48.91 - Unspecified atrial fibrillation Status: Acute Assessment and Plan: New diagnosis of atrial fibrillation. Will continue with IV Amiodarone drip for today, and switch to PO Amiodarone 08/18. Patient was on ASA and Brilinta after PCI, however, now that she is in atrial fibrillation and requires full dose anticoagulation for stroke prophylaxis given [id number] of 4, will start Xarelto. Continue with ASA. As we are starting NOAC, will switch her Brilinta to Plavix. Patient will need to be on triple therapy (ASA, Plavix, Xarelto) for at least 1 month, and then can consider dropping the ASA. (3) Hypertension: Code(s): I10 - Essential (primary) hypertension Status: Chronic Assessment and Plan: Continue Irbesartan and Metoprolol. (4) Tobacco abuse: Code(s): Z72.0 - Tobacco use Status: Acute Assessment and Plan: Counseled on smoking cessation (5) Type 2 diabetes mellitus: Code(s): E11.9 - Type 2 diabetes mellitus without complications Status: Acute Assessment and Plan: Hospitalist consulted for management. (6) Ischemic cardiomyopathy: Code(s): I25.5 - Ischemic cardiomyopathy Status: Acute Assessment and Plan: Echocardiogram with LVEF 35-40%, cannot rule out thrombus, mild TR. Continue ARB and beta millie. Repeat limited echo ordered 08/18 for re-evaluation for LV thrombus. Subjective Date/time seen: 08/17/23 12:01 Interval history: Reason for visit: STEMI HPI: 57-year-old female with CAD, history of PCI/stenting? at outside hospital - intervention report not available; PAD ? history of? Left leg intervention, hypertension, diabetes mellitus on insulin, obesity, heavy tobacco abuse. Patient presented to [facility] Emergency Room with complaints of chest pain that started about 1 hour prior to the arrival.? She describes has pain as sharp pain in the anterior chest, associated with shortness of breath, nausea and vomiting.? She denied any palpitation, dizziness or syncope.? Patient's EKG on my personal interpretation showed sinus tachycardia, ST elevation in the anterior leads.? Cardiac catheterization lab was activated for primary PCI.?At the time of evaluation in the process laboratory specialist, patient was having ongoing chest discomfort.? She said that she had PCI/ stenting few years ago at [facility].? Intervention report not available.? She has not had regular follow-up visit over the years. Her medication compliance is questionable.? She smokes heavily, 1 pack per day. Emergent coronary angiogram showed 100% thrombotic occlusion of mid LAD ju
--- NOTE | 2023-08-17 15:48 | PM.IMCN ---
Assessment and Plan Assessment and plan (1) Type 2 diabetes mellitus: Code(s): E11.9 - Type 2 diabetes mellitus without complications Status: Acute (2) Atrial fibrillation with RVR: Code(s): I48.91 - Unspecified atrial fibrillation Status: Acute (3) Ischemic cardiomyopathy: Code(s): I25.5 - Ischemic cardiomyopathy Status: Acute Plan 57F w/ PMH CAD s/p stenting, current tobacco abuse, IDDM, obesity who presented with chest pain. She is s/p stenting of mid LAD. Initially placed on aspirin and Brilinta but after new onset a fib night of 08/16 she was switched to aspirin Plavix and Xarelto. Hospitalist consulted for diabetes mgmt. 1) uncontrolled IDDM, noncompliance - at home was on Farxiga, metformin, insulin. noncompliant 2/2 to pricing issues. consult case mgmt to assess assistance options - in ICU was placed on 20 units glargine QHS with sliding scale, still with BS ranging in mid 200's. add 7 units aspart with meals scheduled - HBA1c 10.3. counseled extensively on importance of sugar control, especially in light of her recent heart events. - goal blood glucose while inpatient: 140-180 will follow. HPI Data of Consult Consult date: 08/17/23 Requesting Physician: Román Hinton MD Primary Care Provider: PHYSICIAN NOT ON STAFF Consult Narrative Reason for consult: mgmt of diabetes Narrative: 57F w/ PMH CAD s/p stenting, current tobacco abuse, IDDM, obesity who presented with chest pain. She is s/p stenting of mid LAD. Initially placed on aspirin and brilinta but after new onset a fib night of 08/16 she was switched to aspirin plavix and xarelto apparently the patient is noncompliant. i asked her about her meds and she says she cannot afford any. she otherwise denies pain or shortness of breath Review of Systems Review of Systems: All systems reviewed & are unremarkable except as noted in HPI and below PMFSH Past Medical History Medical History (Updated 08/17/23 @ 12:06 by aPtsy Simmons MD) Cerebrovascular accident Documented in her EMR however the patient denies history of such to this examiner. Chronic obstructive pulmonary disease Coronary artery disease Patient reports a history of [place] and had a cardiac catheterization, without intervention. Diabetes mellitus Gastroesophageal reflux disease Hypertension Restless legs syndrome (RLS) Tobacco abuse Type 2 diabetes mellitus Surgical History Surgical History History of cardiac catheterization History of ear surgery Left side, repaired ruptured eardrum 3 years ago History of hysterectomy (~1996) Performed for reported pre cancerous changes. Family History Family History Mother , of COPD age 75; 2018 COPD (chronic obstructive pulmonary disease) Father Acute myocardial infarction of acute [place] age 73 Sibling , age 33 in 2005 Alcohol abuse Other Diabetes mellitus Hypertension Social History Social History Social History: Surrogate decision maker: Ayesha Ramsey, daughter. Code status: Full code. no vaping or marijuana use Smoking packs per day: 1 Smoking cigarettes per day: 20.0 Years smoked: 15 Smoking pack-years: 15.00 Smoking status: Heavy tobacco smoker Tobacco type: cigarettes Second hand tobacco smoke exposure: Yes Alcohol intake: never Substance use: never Substance use type: does not use Lack of Transportation: No Lack of Food: Never True Current Housing: I Have Housing Concerned About Future Housing: No Difficulty Paying Gas/Electric Bills: No Difficulty Paying for Meds: No Currently Unemployed: No Education: High School Diploma/GED Difficulty w/ Childcare or Family Care: No Additional living arrangements comments: Lives in [place] with her family. Ad
[2023-08-17 17:00] LABS: Glucose Point of Care 163 mg/dl (65-105)
[2023-08-17] MEDS: RIVAROXABAN 20 MG TABLET PO (17:25)
[2023-08-17] MEDS: GABAPENTIN 300 MG CAPSULE PO (20:10)
[2023-08-17 20:14] LABS: Glucose Point of Care 180 mg/dl (65-105)
--- NOTE | 2023-08-17 20:50 | PC.NURSE ---
This patient, Kimber Sauceda, was transferred to [room 210 ] on 08/17/23 at 2040. Personal belongings sent with patient. Report given to [LORNA Blood ]. Appropriate documentation sent with patient.
[2023-08-18] VITALS (13 sets, daily range): BP systolic 115–124; BP diastolic 60–81; PULSE 73–84; RESP 20–22; TEMP 36.7–37.1; O2SAT 95–99
[2023-08-18 04:22] LABS: Hematocrit 41.5 % (37.0-47.0); Hemoglobin 13.5 g/dL (12.0-15.0); Mean Corpuscular HGB Conc 32.5 g/dl (32-36); Mean Corpuscular Hemoglobin 26.6 pg (26-34); Mean Corpuscular Volume 81.9 fl (80-100); Mean Platelet Volume 11.1 fl (7.4-10.4); Platelet Count Result 194 k/mm3 (150-375); Red Blood Count 5.07 M/mm3 (4.2-5.4); Red Cell Distribution Width 14.4 % (11.5-14.5); White Blood Count 11.9 K/mm3 (4.5-10.0)
[2023-08-18 04:55] LABS: Alanine Aminotransferase 23 U/L (6-35); Albumin Level 3.2 g/dL (3.5-5.1); Alkaline Phosphatase 78 U/L (38-126); Anion Gap 3 mmol/L (8-16); Aspartate Amino Transferase 39 U/L (14-36); Bilirubin,Total 0.7 mg/dL (0.2-1.3); Blood Urea Nitrogen 14 mg/dL (7-17); Calcium 8.4 mg/dL (8.4-10.2); Carbon Dioxide 27 mmol/L (22-30); Chloride 102 mmol/L (98-107); Estimated CRCL calculation 95 ml/min; Estimated Glomerular Filt Rate > 60; Glucose 131 mg/dL (65-110); Magnesium 1.6 mg/dL (1.6-2.3); Potassium 3.2 mmol/L (3.4-5.0); Sodium 132 mmol/L (137-145)
[2023-08-18] MEDS: AMIODARONE 360 MG/D5W 200 ML 360 MG/200 ML BAG 16.67 MG IV CONT (05:44)
--- NOTE | 2023-08-18 08:00 | ECHO_ITS ---
Patient Info Name: Kimber Sauceda Age: 57 years : 1965 Gender: Female Ht: 65 in Wt: 183 lbs BSA: 1.98 m2 HR: 79 bpm BP: 124 / 81 mmHg Heart Rhythm: Sinus Rhythm Technical Quality: Fair Exam Date: 08/18/2023 9:40 AM Exam Location: [facility] Pulmonary Exam Room: 210 Patient Status: Inpatient Admit Date: 08/15/2023 Staff Ordering Physician: Patsy Simmons MD (mamta/phil) Cfo: Madelaine Rubio RCS Attending Provider: Román Hinton MD Referring Physician: Troy PEÑA; Exam Type: CA echo limited w contrast Study Info Indications - eval lv thrombus Limited two-dimensional transthoracic echocardiogram is performed with contrast. Contrast/Agitated Saline Contrast/Ag. Saline: Definity Amount: 2.00 ml Administered By: Madelaine Rubio Existing IV Access: Yes Summary 1. Limited echocardiogram done with definity contrast to rule out LV apical clot. 2. No left ventricular thrombus identified. 3. Wall motion abnormalities with hypokinesia of the mid apical anterior wall akinesia to slight dyskinesia of the apex. 4. Overall ejection fraction approximately 40%. Left Ventricle Left ventricular chamber dimension is normal. Left ventricular systolic function is moderately reduced, estimated at 40-45%. There is no thrombus visualized in the left ventricle. Right Ventricle Right ventricular chamber dimension is normal. Left Atria Left atrial chamber dimension is normal. Right Atria Right atrial chamber dimension is normal. Pericardium/Pleural There is no pericardial effusion. Report Signatures
[2023-08-18] MEDS: FLUTICASONE/SALMETEROL 115-21 MCG INHALER 1 PUFF 2 PUFF INHALATION (08:03)
[2023-08-18 08:22] LABS: Glucose Point of Care 141 mg/dl (65-105)
[2023-08-18] MEDS: INSULIN ASPART (*BKC) 100 UNITS/ML 7 UNITS SUB-Q ×2 (08:35→12:00)
[2023-08-18] MEDS: INSULIN GLARGINE (*BKC) 100 UNITS/ML 20 UNITS SUB-Q (08:35)
[2023-08-18] MEDS: IRBESARTAN 75 MG TABLET PO (08:36)
[2023-08-18] MEDS: ATORVASTATIN 40 MG TABLET 80 MG PO (08:36)
[2023-08-18] MEDS: ASPIRIN 81 MG ENTERIC TABLET PO (08:36)
[2023-08-18] MEDS: METOPROLOL SUCCINATE EXT REL 100 MG TABCR PO (08:36)
[2023-08-18] MEDS: metFORMIN HCL 500 MG TABLET PO (08:36)
--- NOTE | 2023-08-18 09:31 | PM.CNCAR ---
Assessment and Plan Assessment and plan (1) ST elevation (STEMI) myocardial infarction: Qualifiers: Involved coronary artery: unspecified coronary artery Qualified Code(s): I21.3 - ST elevation (STEMI) myocardial infarction of unspecified site Code(s): I21.3 - ST elevation (STEMI) myocardial infarction of unspecified site Status: Acute Assessment and Plan: Patient presented with ACS/anterior ST-elevation [place], found to have 100% thrombotic occlusion of mid LAD, status post IVUS guided PCI / APOLLO x2.? Echocardiogram with LVEF 35-40%, cannot rule out thrombus, mild TR. Patient was on ASA and Brilinta after PCI, however, now that she is in atrial fibrillation and requires full dose anticoagulation for stroke prophylaxis given [id number] of 4, will start Xarelto. Continue with ASA. As we are starting NOAC, will switch her Brilinta to Plavix. Patient will need to be on triple therapy (ASA, Plavix, Xarelto) for at least 1 month, and then can consider dropping the ASA. Continue high intensity statin. Continue Metoprolol. I will switch it to Succinate form. Continue Irbesartan. No clear thrombus was visualized, however, thrombus cannot be completely ruled out at this point.? Will repeat a limited echo before discharge.? (2) Atrial fibrillation with RVR: Code(s): I48.91 - Unspecified atrial fibrillation Status: Acute Assessment and Plan: New diagnosis of atrial fibrillation. Will continue with IV Amiodarone drip for today, and switch to PO Amiodarone 08/18. Patient was on ASA and Brilinta after PCI, however, now that she is in atrial fibrillation and requires full dose anticoagulation for stroke prophylaxis given [id number] of 4, will start Xarelto. Continue with ASA. As we are starting NOAC, will switch her Brilinta to Plavix. Patient will need to be on triple therapy (ASA, Plavix, Xarelto) for at least 1 month, and then can consider dropping the ASA. (3) Hypertension: Code(s): I10 - Essential (primary) hypertension Status: Chronic Assessment and Plan: Continue Irbesartan and Metoprolol. (4) Tobacco abuse: Code(s): Z72.0 - Tobacco use Status: Acute Assessment and Plan: Counseled on smoking cessation (5) Type 2 diabetes mellitus: Code(s): E11.9 - Type 2 diabetes mellitus without complications Status: Acute Assessment and Plan: Hospitalist consulted for management. (6) Ischemic cardiomyopathy: Code(s): I25.5 - Ischemic cardiomyopathy Status: Acute Assessment and Plan: Echocardiogram with LVEF 35-40%, cannot rule out thrombus, mild TR. Continue ARB and beta millie. Repeat limited echo ordered 08/18 for re-evaluation for LV thrombus. History of Present Illness History of Present Illness Consult date/time: 08/18/23 09:31 Reason For Visit: STEMI Review of Systems Review of Systems: All systems reviewed & are unremarkable except as noted in HPI and below (HPI) Constitutional: Constitutional: Denies body ache(s) ENT: Denies epistaxis Cardiovascular: Cardiovascular: Denies chest pain, Denies lightheadedness and Denies dyspnea on exertion Respiratory: Respiratory: Denies dyspnea on exertion Gastrointestinal: Gastrointestinal: Denies abdominal pain [facility] Past Medical History Medical History (Updated 08/17/23 @ 12:06 by Patsy Simmons MD) Cerebrovascular accident Documented in her EMR however the patient denies history of such to this examiner. Chronic obstructive pulmonary disease Coronary artery disease Patient reports a history of [place] and had a cardiac catheterization, without intervention. Diabetes mellitus Gastroesophageal reflux disease Hypertension Restless legs syndrome (RLS) Tobacco abuse Type 2 diabetes mellitus Surgical History Surgical History History of cardiac catheterization History of ear surgery Left side, repaire
[2023-08-18] MEDS: AMIODARONE HCL 200 MG TABLET 400 MG PO (09:54)
[2023-08-18] MEDS: POTASSIUM CHLORIDE 20 MEQ ER TABLET 40 MEQ PO (09:58)
[2023-08-18] MEDS: PERFLUTREN LIPID MICROSPHERES 1.5 ML VIAL DILUTED TO 10 ML TOTAL VOLUME IV PUSH (10:00)
[2023-08-18 11:44] LABS: Glucose Point of Care 117 mg/dl (65-105)
[2023-08-18] MEDS: CLOPIDOGREL BISULFATE 300 MG TABLET 600 MG PO (12:01)
--- NOTE | 2023-08-18 12:08 | IVDEFINITY ---
Prior to administration of IV Definity the patient was educated on the risks and benefits of the imaging enhancing agent including potential adverse side effects. The patient verbalized understanding. Allergies were verified. No exclusion criteria were identified and at least one of the following inclusion criteria were met: 1) physician request, 2) patient technically difficult to image (per the [place] Society of Echocardiography guidelines of two or more segments not discernable within the apical view), or 3) questionable left ventricular function. ?
--- NOTE | 2023-08-18 12:17 | PM.IMPN ---
Progress Note: A&P Assessment and Plan (1) Type 2 diabetes mellitus: Code(s): E11.9 - Type 2 diabetes mellitus without complications Status: Acute Plan recommend d/c on insulin glargine 20 units qam and aspart 7 units TIDWM. she has been counseled on importance of sugar control. she should follow up with PCP on medications and her blood glucose log Subjective Date/time seen: 08/18/23 12:17 Interval history: NAOE Review of Systems Review of Systems: All systems reviewed & are unremarkable except as noted in HPI and below Exam Narrative: General: Pt is alert awake and in NAD Lungs/Chest: Trachea central Clear BS B/L, No crackles or wheezing. Cardiac: RRR. Normal S1 S2. No murmurs Circulation: Left dorsalis pedis is palpable, right dorsalis pedis is not palpable or dopplerable, right posterior tibial is dopplerable. Both feet have same color and temperature Abdomen: Normal bowel sounds.. Soft. NT. ND. Extremities: No clubbing, cyanosis or edema. Warm, dressing in right groin. No sheath : Morrow in place Neurologic: Follows commands. Moves all 4 extremities PERRL AO x3 Skin: No Rash Const: General: comfortable and no acute distress Resp: Effort & Inspection: normal respiratory effort Auscultation: clear to auscultation bilaterally Cardio: Rate: regular rate Rhythm: regular rhythm Extrem: General: no edema Objective Data Vital Signs Vital Signs: Vital Signs - 24 hr 08/17/23 14:00 08/17/23 16:00 08/17/23 16:00 Temperature Pulse Rate 85 79 79 Respiratory Rate 26 H Blood Pressure Pulse Oximetry 94 Oxygen Delivery Room Air Fraction of Inspired Oxygen 08/17/23 16:00 08/17/23 18:00 08/17/23 18:41 Temperature 98.5 F Pulse Rate 79 82 81 Respiratory Rate 26 H Blood Pressure 118/66 117/78 Pulse Oximetry 94 Oxygen Delivery Fraction of Inspired Oxygen 08/17/23 20:00 08/17/23 20:10 08/17/23 20:10 Temperature 98.4 F Pulse Rate 98 86 100 Respiratory Rate 22 H Blood Pressure 104/85 Pulse Oximetry 97 Oxygen Delivery Fraction of Inspired Oxygen 08/17/23 20:00 08/17/23 20:00 08/17/23 20:15 Temperature Pulse Rate 95 88 Respiratory Rate Blood Pressure Pulse Oximetry 96 Oxygen Delivery Room Air Room Air Fraction of Inspired Oxygen 21 08/17/23 22:00 08/17/23 23:21 08/17/23 23:44 Temperature 97.2 F L Pulse Rate 76 79 80 Respiratory Rate 22 H Blood Pressure 102/59 L Pulse Oximetry 97 Oxygen Delivery Room Air Fraction of Inspired Oxygen 08/18/23 00:00 08/18/23 02:00 08/18/23 03:45 Temperature 98.7 F Pulse Rate 79 73 80 Respiratory Rate 22 H Blood Pressure 124/81 Pulse Oximetry 95 Oxygen Delivery Fraction of Inspired Oxygen 08/18/23 03:51 08/18/23 04:00 08/18/23 05:44 Temperature Pulse Rate 80 73 75 Respiratory Rate Blood Pressure Pulse Oximetry Oxygen Delivery Room Air Fraction of Inspired Oxygen 08/18/23 05:44 08/18/23 05:50 08/18/23 08:36 Temperature Pulse Rate 75 84 81 Respiratory Rate Blood Pressure Pulse Oximetry Oxygen Delivery Fraction of Inspired Oxygen 08/18/23 08:00 08/18/23 09:54 Temperature 98.0 F Pulse Rate 74 80 Respiratory Rate 20 Blood Pressure 115/66 Pulse Oximetry 98 Oxygen Delivery Fraction of Inspired Oxygen Intake/Output Intake/Output: Intake & Output 08/15/23 08/16/23 08/17/23 08/18/23 23:59 23:59 23:59 23:59 Intake Total 016 512 0227 680 Output Total 500 650 900 300 Balance 0 -400 950 380 Meds/Results Medications: Active Medications Generic Name Dose Route Start Last Admin Trade Name Freq PRN Reason Stop Dose Admin Acetaminophen 650 mg 08/15/23 14:18 Acetaminophen 325 Mg Tablet PO Q4H PRN Mild Pain (1-3) or Fever Amiodarone HCl 400 mg 08/18/23 09:20 08/18/23 09:54 Amiodarone Hcl 200 Mg Tablet PO 400 mg DAILY@0800 [facility] Administration Asp
--- NOTE | 2023-08-18 14:19 | PM.DS ---
DS: Admitting Diagnosis Discharge Date 08/18/23 Admitting Diagnosis Chest pain DS: Discharge Diagnosis Discharge Diagnosis (1) ST elevation (STEMI) myocardial infarction: Qualifiers: Involved coronary artery: unspecified coronary artery Qualified Code(s): I21.3 - ST elevation (STEMI) myocardial infarction of unspecified site Code(s): I21.3 - ST elevation (STEMI) myocardial infarction of unspecified site Status: Acute Assessment and Plan: Patient presented with ACS/anterior ST-elevation [place], found to have 100% thrombotic occlusion of mid LAD, status post IVUS guided PCI / APOLLO x2. Echocardiogram with LVEF 35-40%, cannot rule out thrombus, mild TR. Patient was on ASA and Brilinta after PCI, however, now that she is in atrial fibrillation and requires full dose anticoagulation for stroke prophylaxis given [id number] of 4, will start Xarelto. Continue with ASA. As we are starting NOAC, will switch her Brilinta to Plavix. Patient will need to be on triple therapy (ASA, Plavix, Xarelto) for at least 1 month, and then can consider dropping the ASA. Continue high intensity statin. Continue Metoprolol. I will switch it to Succinate form. Continue Irbesartan. No clear thrombus was visualized, however, thrombus cannot be completely ruled out at this point. Will repeat a limited echo before discharge. (2) Atrial fibrillation with RVR: Code(s): I48.91 - Unspecified atrial fibrillation Status: Acute Assessment and Plan: New diagnosis of atrial fibrillation. Will continue with IV Amiodarone drip for today, and switch to PO Amiodarone 08/18. Patient was on ASA and Brilinta after PCI, however, now that she is in atrial fibrillation and requires full dose anticoagulation for stroke prophylaxis given [id number] of 4, will start Xarelto. Continue with ASA. As we are starting NOAC, will switch her Brilinta to Plavix. Patient will need to be on triple therapy (ASA, Plavix, Xarelto) for at least 1 month, and then can consider dropping the ASA. (3) Hypertension: Code(s): I10 - Essential (primary) hypertension Status: Chronic Assessment and Plan: Continue Irbesartan and Metoprolol (4) Tobacco abuse: Code(s): Z72.0 - Tobacco use Status: Acute Assessment and Plan: Smoking cessation recommended (5) Type 2 diabetes mellitus: Code(s): E11.9 - Type 2 diabetes mellitus without complications Status: Acute (6) Ischemic cardiomyopathy: Code(s): I25.5 - Ischemic cardiomyopathy Status: Acute Assessment and Plan: Echocardiogram with LVEF 35-40%, cannot rule out thrombus, mild TR. Continue ARB and beta millie. Repeat limited echo ordered 08/18 for re-evaluation for LV thrombus. DS: Summary Hospital Course Reason for hospitalization: Chest pain Hospital Course: Presented to [facility] on 08/15/2023 with chest pain was found to have an acute anterior myocardial infarction. She was taken emergently to the cardiac r&d lab technician by Dr. Perez. She had a 100% thrombotic occlusion of the mid LAD just distal to the diagonal branch. She underwent IVUS guided primary PCI with placement of 2 drug-eluting stents to the mid LAD with methodist of flow. Her echocardiogram showed reduced systolic function with an ejection fraction of 35-40%, mild TR, possible LV thrombus which was not visualized on follow-up limited echo. She also had atrial fibrillation following PCI and was placed on amiodarone. She later converted to sinus rhythm. Time Spent with Patient Time attestation: Total time spent providing and/or coordinating discharge services: Exam Narrative: PHYSICAL EXAMINATION: GENERAL: obese, Alert, oriented, mild distress due to chest pain MENTAL STATUS: anxious EYES: Extraocular movements intact, no pallor EARS: External ears appear normal, hearing grossly normal NOSE: Normal and patent, no discharge MOUTH: Mucous membranes
== END 2023-08-18 16:12 | disposition home or self-care (01) | DRG 322 ==
LOC: ANHED 06:47 → ANHICU 06:52 → ANHIMU 08-18 09:31 → ANHICU 08-21 08:32 → ANHIMU 08-21 08:32
PROVIDERS: General Practice; Internal Medicine; Admitting Provider Internal Medicine Cardiovascular Disease; Emergency Provider Emergency Medicine; Visit Provider Nurse Practitioner
PROC: 4A023N7 Measurement of Cardiac Sampling and Pressure, Left Heart, Percutaneous Approach (ICD-10-PCS; CPT 93452; principal; 2023-08-15 06:50)
PROC: 027035Z Dilation of Coronary Artery, One Artery with Two Drug-eluting Intraluminal Devices, Percutaneous Approach (ICD-10-PCS; 2023-08-15 06:50)
PROC: 027035Z Dilation of Coronary Artery, One Artery with Two Drug-eluting Intraluminal Devices, Percutaneous Approach (ICD-10-PCS; 2023-08-15 06:50)
PROC: 027035Z Dilation of Coronary Artery, One Artery with Two Drug-eluting Intraluminal Devices, Percutaneous Approach (ICD-10-PCS; 2023-08-15 06:50)
DX: I21.09 ST elevation (STEMI) myocardial infarction involving other coronary artery of anterior wall (principal); I25.10 Atherosclerotic heart disease of native coronary artery without angina pectoris; I10 Essential (primary) hypertension; I48.91 Unspecified atrial fibrillation; I25.5 Ischemic cardiomyopathy; J44.9 Chronic obstructive pulmonary disease, unspecified; E11.9 Type 2 diabetes mellitus without complications; K21.9 Gastro-esophageal reflux disease without esophagitis; G25.81 Restless legs syndrome; F17.210 Nicotine dependence, cigarettes, uncomplicated; Z95.5 Presence of coronary angioplasty implant and graft; Z79.4 Long term (current) use of insulin; Z91.148 Patient's other noncompliance with medication regimen for other reason
CPT/HCPCS: 36415; 80048; 80053; 80061; 82948; 83036; 83735; 84100; 84145; 84484; 85025; 85027; 86850; 86900; 86901; 92978; 93005; 93308; 93458; 94640; 99285; A9270; C1725; C1753; C1760; C1769; C1874; C1887; C1894; C8924; C8929; C9606; G0269; J0153; J0282; J0583; J1170; J1644; J1650; J1815; J2250; J2270; J2305; J2405; J3010; J7030; J7040; J7050; Q9957